=== PATIENT | male | born 1990 | race Caucasian/White ===

== ENCOUNTER 2019-03-30 00:21 | Emergency (ER) | payer OTHER, SELFPAY ==
--- NOTE | ~2019-03-30 | CT_ITS ---
EXAMINATION: CT abdomen pelvis w con EXAM DATE: 03/30/2019 01:57 INDICATION: Right lower quadrant pain. TECHNIQUE: Spiral CT of the abdomen and pelvis was performed following intravenous injection of 100 m L Omnipaque 350. Axial, coronal and sagittal images were reviewed. The dose-length product (DLP) fo r this examination was 298.72 mGy-cm. The exposure was tailored according to patient size (auto mA e xposure control), and iterative reconstruction (ASIR) was used as additional dose reduction technique . Comparison is made to prior examination from 05/21/2018. FINDINGS: The liver, spleen, adrenal glands and pancreas are unremarkable. The gallbladder is contra cted but otherwise unremarkable. Portal and splenic veins are patent. Kidneys enhance symmetrically . There is no hydronephrosis. The prostate has 12 mm hypodensity probably utricle cyst unchanged. Small umbilical fat-containing hernia. The bladder is unremarkable. There is no retroperitoneal or pelvic lymphadenopathy. The appendix is normal. The stomach and small bowel are unremarkable. There is moderate amount of c olonic stool. The descending colon has absence of haustral folds, somewhat unusual appearance which c ould possibly indicate chronic inflammatory bowel disease, however no history as per physician. Could potentially be phasic as well. There is mild sigmoid colonic diverticulosis. There is no adjacent i nflammatory change to suggest diverticulitis. No free intraperitoneal gas. The heart is normal in size. There are no pericardial or pleural effusions. The lung bases are unremarkable. There are no osteoblastic or osteolytic lesions identified. IMPRESSION: 1. No acute intra-abdominal findings. 2. Small prostate midline fluid density region could be utricle cyst cysts. 3. Rather featureless moderately distended descending colon, appearance can be seen with inflammator y bowel disease, or this could be phasic. No wall thickening or other findings to suggest acute proce ss. Reviewed, dictated and finalized at location B. [employer] IMPRESSION: 1. No acute intra-abdominal findings. 2. Small prostate midline fluid density region could be utricle cyst cysts. 3. Rather featureless moderately distended descending colon, appearance can be seen with inflammatory bowel disease, or this could be phasic. No wall thicken ing or other findings to suggest acute process.
[2019-03-30 00:21] VITALS: BP 145/82; PULSE 87; RESP 20; TEMP 36.6; O2SAT 96
[2019-03-30 00:46] LABS: Hematocrit 41.3 % (40.0-54.0); Hemoglobin 14.1 g/dL (14.0-18.0); Mean Corpuscular HGB Conc 34.1 g/dL (32.0-36.0); Mean Corpuscular Hemoglobin 29.7 pg (27.0-31.0); Mean Corpuscular Volume 86.9 fL (78.0-102.0); Mean Platelet Volume 9.7 fl (8.7-11.0); Platelet Count Result 218 K/mm3 (150-420); Red Blood Count 4.75 M/mm3 (4.70-6.10); Red Cell Distribution Width 12.7 % (11.6-14.4); White Blood Count 7.1 K/mm3 (4.8-10.8)
[2019-03-30 00:47] LABS: Appearance Urine Clear (Clear); Bilirubin Urine Negative (Negative); Color Urine Yellow (Yellow); Glucose Urine UA Negative (Negative); Ketones Urine Negative (Negative); Leukocyte Esterase Ur Negative LEU/UL (Negative); Nitrate Urine Negative (Negative); Protein Urine Trace (Negative); Urobilinogen Urine 0.2 mg/dL (0.2-1.0); pH Urine 6.5 (5.0-8.0)
[2019-03-30 01:02] LABS: Alanine Aminotransferase 44 U/L (16-63); Alkaline Phosphatase 104 U/L (46-116); Anion Gap 13.6 mmol/L (7-16); Aspartate Amino Transferase 26 U/L (15-37); Bilirubin,Total 0.3 mg/dL (0.00-1.00); Blood Urea Nitrogen 20 mg/dL (7-18); Calcium 8.5 mg/dL (8.5-10.1); Carbon Dioxide 28 mmol/L (21-32); Chloride 104 mmol/L (98-108); Estimated CRCL calculation 92 ml/min; Estimated Glomerular Filt Rate > 60; Glucose 101 mg/dL (70-99); Lipase 99 U/L (73-393); Osmolality Calculated 296 mOsm/kg (285-295); Potassium 3.6 mmol/L (3.5-5.1); Sodium 142 mmol/L (136-145); Total Protein 7.9 g/dL (6.4-8.2)
[2019-03-30 01:08] LABS: Add Urine Microscopic? YES; Bacteria Urine Trace /hpf; Blood Urine Trace (Negative); Squamous Epithelial Cell Urine None seen /hpf (Few); WBC Urine 0-3 /hpf (0-3)
[2019-03-30 01:09] LABS: Band Neutrophils Percent 0 % (0-6); Neutrophils Absolute Manual 4.04 K/mm3 (1.3-6.7); Neutrophils Percent Manual 57 % (46-73)
[2019-03-30 01:10] LABS: Eosinophils Absolute Manual 0.07 K/mm3 (0.02-0.5); Eosinophils Percent Manual 1 % (1-6); Lymphocytes Absolute Manual 2.05 K/mm3 (1.1-4.5); Lymphocytes Percent Manual 29 % (18-44); Monocytes Absolute Manual 0.92 K/mm3 (0.1-0.90); Monocytes Percent Manual 13 % (3-9); Platelet Estimate Adequate (Adequate)
[2019-03-30 01:11] LABS: Atypical Lymphocytes Present
[2019-03-30 01:12] LABS: Amylase 52 U/L (25-115); CRP 1.2 mg/dL (0.0-0.9)
--- NOTE | 2019-03-30 01:19 | ED.ABDPAIN ---
HPI - Abdominal Pain General Chief Complaint: Abdominal Pain Stated Complaint: abdominal pain Source: patient and RN notes reviewed Mode of arrival: ambulatory Limitations: no limitations History of Present Illness MD elicited complaint: abdominal pain Pertinent past history: none Onset (ago): day(s) (4) Pain Consistency: intermittent Location: periumbilical Severity: moderate Quality: cramping and sharp Radiation: RLQ Migration to: no migration Exacerbating factors: nothing Relieving factors: nothing Associated symptoms: denies other symptoms Related Data Home Medications Medication Instructions Recorded Confirmed No Home Medications 03/30/19 03/30/19 Allergies Allergy/AdvReac Type Severity Reaction Status Date / Time iodine Allergy Unknown Verified 03/09/17 17:37 Review of Systems Constitutional: Constitutional: Denies chills, Denies fever(s) and Denies weakness ENT: Reports system reviewed and no additional complaints, except as documented Cardiovascular: Cardiovascular: Reports no additional cardiovascular complaints Respiratory: Respiratory: Reports no additional respiratory complaints Gastrointestinal: Gastrointestinal: Denies constipation, Denies diarrhea, Denies nausea and Denies vomiting PMFSH Past Medical History Medical History (Updated 03/30/19 @ 04:22 by Magdiel Jones MD) No active medical problems Surgical History Surgical History (Updated 03/30/19 @ 01:26 by Magdiel Jones MD) H/O eye surgery Family History Family History (Updated 06/28/17 @ 14:42 by DOCTOR UNKNOWN) Father Acute myocardial infarction, Onset Age: 40 Social History Social History Smoking status: Smoker, status unknown Exam Const: General: healthy appearing, no acute distress and alert Nutritional Appearance: well nourished and thin Orientation/consciousness: patient oriented x3 HENMT: Head: normal to inspection Ears: external ears normal Mouth: Yes moist mucous membranes Eyes: Conjunctivae: conjunctivae normal Pupils: Equal, round and reactive pupils present EOM: EOMs intact bilaterally Neck: Neck: normal visual inspection and no lymphadenopathy Resp: Effort & Inspection: normal respiratory effort Auscultation: clear to auscultation bilaterally Cardio: Rate: regular rate Rhythm: regular rhythm GI: Inspection: normal to inspection GI Palp: Yes abdominal tenderness (RLQ), Yes Soft to palpation, Yes Guarding due to palpation present (GI) (RLQ) and Yes No hepatosplenomegaly present Auscultation: normal bowel sounds Back/Spine/Pelvis: Back: no CVA tenderness Cervical Spine: cervical ROM normal Thoracic/Lumbar Spine: thoraco-lumbar ROM normal Skin: General skin exam: normal color Rashes: no rashes Neuro: General: patient oriented x3, moves all extremities and no focal motor deficits Speech: normal speech Extrem: General: normal to inspection and no clubbing, cyanosis or edema Psych: Appearance: grossly normal and well kempt Mental Status: mental status grossly normal Affect: normal affect Attitude: cooperative Thought content: Yes Normal thought content present Course Vital Signs Vital signs: Vital Signs Temperature 36.6 C 03/30/19 00:21 Pulse Rate 87 03/30/19 00:21 Respiratory Rate 20 03/30/19 00:21 Blood Pressure 145/82 H 03/30/19 00:21 Pulse Oximetry 96 03/30/19 00:21 Temperature 36.7 C 03/30/19 04:18 Pulse Rate 83 03/30/19 04:18 Respiratory Rate 18 03/30/19 04:18 Blood Pressure 140/80 03/30/19 04:18 Pulse Oximetry 97 03/30/19 04:18 MDM - Abdominal Pain Lab Data Attestation: I reviewed the patient's lab results. Result diagrams: 03/30/19 00:39 03/30/19 00:39 Labs: Lab Results 03/30/19 03/30/19 03/30/19 Range/Units 00:36 00:39 00:39 WBC 7.1 (4.8-10.8) K/mm3 RBC 4.75 (4.70-6.10) M/mm3 Hgb 14.1 (14.0-18.0) g/dL Hct 41.3 (40.0-54.0) % MCV 86.9 (78.0-102.0) fL
--- NOTE | 2019-03-30 01:36 | PC.NURSE ---
CONTRAST CONSENT SIGNED AND FAXED TO XRAY DEPARTMENT. PT HAS BEEN SLEEPING UNTIL AWAKENED FOR IV INSERTION.
--- NOTE | 2019-03-30 02:07 | PC.NURSE ---
pt return from ct. compalint of itching all over. erp notified.
--- NOTE | 2019-03-30 03:24 | PC.NURSE ---
pt sleeping. no distress or evidence of pain.
[2019-03-30 03:46] VITALS: BP 141/82; PULSE 83; RESP 18; TEMP 36.9; O2SAT 97
[2019-03-30 04:18] VITALS: BP 140/80; PULSE 83; RESP 18; TEMP 36.7; O2SAT 97
== END 2019-03-30 04:23 | disposition home or self-care (01) ==
PROVIDERS: Emergency Provider Emergency Medicine
DX: R10.9 Unspecified abdominal pain (principal)
CPT/HCPCS: 36415; 74177; 80053; 81001; 82150; 83690; 85025; 86140; 96374; 99283; 99284; J1200; Q9965

== ENCOUNTER 2019-11-29 21:13 | Emergency (ER) | payer SELFPAY ==
--- NOTE | ~2019-11-29 | XR_ITS ---
EXAMINATION: XR chest 2V EXAM DATE: 11/29/2019 21:52 INDICATION: Cough and shortness of breath. TECHNIQUE: Frontal and lateral projections of the chest obtained and reviewed. Comparison is made to prior examination from 06/15/2017. FINDINGS: The lungs are clear. There are no pleural effusions. The cardiomediastinal silhouette is within normal limits. There is no pneumothorax suspected. The bones and soft tissues are unremarkab le. IMPRESSION: Unremarkable chest x-ray exam. Reviewed, dictated and finalized at location G.
[2019-11-29 21:36] VITALS: BP 141/77; PULSE 80; RESP 20; TEMP 37.1; O2SAT 99
--- NOTE | 2019-11-29 21:38 | ED.GENADULT ---
HPI - General Adult General Chief complaint: Upper Respiratory Infection Stated complaint: cough,throwing up Source: patient and family Mode of arrival: ambulatory Limitations: no limitations History of Present Illness HPI narrative: Tommy is a previously healthy man with the exception of COVID diagnosis in September, that presented to the emergency department with 4 days of cough, SOB, nausea and vomiting. It started with a constant dry cough that is so bad he feels like he is going to throw up then he does. He has had several episodes of NBNB vomiting and watery diarrhea. No chest pain or syncope. Related Data Home Medications Medication Instructions Recorded Confirmed No Home Medications 03/30/19 11/29/19 Allergies Allergy/AdvReac Type Severity Reaction Status Date / Time iodine Allergy Unknown Unknown Verified 11/29/19 21:43 Review of Systems Constitutional: Constitutional: Reports fatigue Comments: subjective fevers Eyes: Eyes: Reports no additional eye complaints ENT: Reports system reviewed and no additional complaints, except as documented Cardiovascular: Cardiovascular: Denies chest pain, Denies rapid heart rate and Denies radiating jaw, neck or arm pain Respiratory: Respiratory: Reports no additional respiratory complaints Gastrointestinal: Gastrointestinal: Reports as per HPI Genitourinary: Genitourinary: Reports no additional male genitourinary complaints Musculoskeletal: Musculoskeletal: Reports no additional musculoskeletal complaints Integumentary/Breasts: Skin/Breast: Reports system reviewed and no additional complaints, except as docu Neurologic: Reports system reviewed and no additional complaints, except as documented Psychiatric: Psychiatric: Reports no additional psychiatric complaints Endocrine: Endocrine: Reports no additional endocrine complaints Hematologic/Lymphatic: Hematologic/Lymphatic: Reports no additional hematologic/lymphatic complaints Allergic/Immunologic: Allergic/Immunologic: Reports no additional allergic/immunologic complaints [facility] Past Medical History Medical History No active medical problems Surgical History Surgical History H/O eye surgery Family History Family History Father Acute myocardial infarction, Onset Age: 40 Social History Social History Smoking status: Smoker, status unknown Gender identity (if verbalized by the patient): Male Exam Const: General: no acute distress Orientation/consciousness: patient oriented x3 HENMT: Head: normal to inspection Other: atraumatic, slightly dry mucous membranes. Eyes: Pupils: Equal, round and reactive pupils present Neck: Neck: normal visual inspection Chest: Chest palpation & inspection: normal inspection of the chest Resp: Effort & Inspection: normal respiratory effort Auscultation: clear to auscultation bilaterally Other: Hacking cough present on exam Cardio: Rate: regular rate Rhythm: regular rhythm Heart sounds: no murmurs GI: Inspection: non-distended GI Palp: Yes Soft to palpation, No Tenderness to palpation present (GI) and No Guarding due to palpation present (GI) Skin: General skin exam: normal color Rashes: no rashes Neuro: General: patient oriented x3 and moves all extremities Extrem: General: normal to inspection Psych: Mental Status: mental status grossly normal Course Course Emergency Course: Tommy was evaluated. CXR, flu swabs, 1L NS and labs were ordered. Labs were largely unremarkable. EXAMINATION: XR chest 2V EXAM DATE: 11/29/2019 21:52 INDICATION: Cough and shortness of breath. TECHNIQUE: Frontal and lateral projections of the chest obtained and reviewed. Comparison is made to prior examination from 06/15/2017. FINDINGS: The lungs
[2019-11-29] MEDS: SODIUM CHLORIDE 0.9% IV 1,000 ML 999 ML IV CONT (21:50)
[2019-11-29 21:59] LABS: Basophils Absolute Auto 0.05 K/mm3 (0.00-0.10); Basophils Percent Auto 0.5 % (0.0-1.0); Eosinophils Absolute Auto 0.46 K/mm3 (0.02-0.50); Eosinophils Percent Auto 4.7 % (1.0-6.0); Hemoglobin 15.3 g/dL (14.0-18.0); Immature Granulocyte Absolute 0.02 K/mm3 (0.00-0.00); Immature Granulocyte Percent A 0.2 % (0.0-0.0); Lymphocytes Percent Auto 46.2 % (18.0-42.0); Mean Corpuscular HGB Conc 34.8 g/dL (32.0-36.0); Mean Corpuscular Hemoglobin 30.5 pg (27.0-31.0); Mean Corpuscular Volume 87.6 fL (78.0-102.0); Mean Platelet Volume 9.7 fl (8.7-11.0); Monocytes Absolute Auto 0.85 K/mm3 (0.10-0.90); Monocytes Percent Auto 8.7 % (2.0-11.0); Neutrophils Absolute Auto 3.9 K/mm3 (1.7-7.2); Neutrophils Percent Auto 39.7 % (50.0-70.0); Platelet Count Result 330 K/mm3 (150-420); Red Blood Count 5.02 M/mm3 (4.70-6.10); Red Cell Distribution Width 12.3 % (11.6-14.4); White Blood Count 9.7 K/mm3 (4.8-10.8)
[2019-11-29 22:14] LABS: Alanine Aminotransferase 37 U/L (16-63); Albumin Level 3.9 g/dL (3.4-5.0); Alkaline Phosphatase 135 U/L (46-116); Anion Gap 9 mmol/L (8-16); Aspartate Amino Transferase 23 U/L (15-37); Bilirubin,Total 0.3 mg/dL (0.00-1.00); Blood Urea Nitrogen 14 mg/dL (7-18); Calcium 8.8 mg/dL (8.5-10.1); Carbon Dioxide 29 mmol/L (21-32); Chloride 103 mmol/L (98-108); Estimated CRCL calculation 80 ml/min; Estimated Glomerular Filt Rate > 60; Glucose 118 mg/dL (70-99); Osmolality Calculated 293 mOsm/kg (285-295); Potassium 3.5 mmol/L (3.5-5.1); Sodium 141 mmol/L (136-145); Total Protein 7.8 g/dL (6.4-8.2)
[2019-11-29 22:20] LABS: Influenza Control Valid (Valid)
[2019-11-29 22:54] VITALS: BP 136/80; PULSE 86; RESP 20; O2SAT 99
== END 2019-11-29 22:56 | disposition home or self-care (01) ==
PROVIDERS: Emergency Provider Family Medicine
DX: B34.9 Viral infection, unspecified (principal)
CPT/HCPCS: 36415; 71046; 80053; 85025; 87804; 96360; 99282; 99283; J7030

== ENCOUNTER 2020-03-03 02:00 | Emergency (ER) | payer OTHER, SELFPAY ==
[2020-03-03 02:14] VITALS: BP 131/87; PULSE 63; RESP 18; TEMP 36.3; O2SAT 97
[2020-03-03 02:57] LABS: SARS-CoV-2 Ag Negative (Negative)
[2020-03-03 03:14] VITALS: BP 130/78; PULSE 85; RESP 18; O2SAT 97
--- NOTE | 2020-03-03 03:19 | ED.URI ---
HPI - URI/Sore Throat General Chief Complaint: Upper Respiratory Infection Stated Complaint: Sore Throat Source: patient Mode of arrival: ambulatory Limitations: no limitations History of Present Illness HPI Narrative: this is a 29-year-old male with some sore throat with some enlarged and tender and painful left submandibular gland with some some pain with swallowing with no shortness of breath no fever chills no nausea vomiting. MD elicited complaint: sore throat Onset (ago): day(s) Consistency: constant Severity: moderate Able to tolerate fluids by mouth: Yes Exacerbating factors: swallowing Related Data Allergies Allergy/AdvReac Type Severity Reaction Status Date / Time iodine Allergy Unknown Unknown Verified 11/29/19 21:43 Review of Systems Review of Systems: All systems reviewed & are unremarkable except as noted in HPI and below PMFSH Past Medical History Medical History No active medical problems Patient denies medical problems Surgical History Surgical History H/O eye surgery Family History Family History Father Acute myocardial infarction, Onset Age: 40 Social History Social History Smoking status: Smoker, status unknown Gender identity (if verbalized by the patient): Male Exam Const: General: no acute distress and alert Orientation/consciousness: patient oriented x3 HENMT: Head: normal to inspection Other: left tonsillar enlargement and erythema Eyes: Conjunctivae: conjunctivae normal Pupils: Equal, round and reactive pupils present EOM: EOMs intact bilaterally Neck: Neck: normal visual inspection Other: tender enlarged left submandibular gland Chest: Chest palpation & inspection: normal inspection of the chest Resp: Effort & Inspection: normal respiratory effort Cardio: Rate: regular rate Rhythm: regular rhythm GI: GI Palp: Yes Soft to palpation Neuro: General: patient oriented x3 Extrem: General: normal to inspection Course Course Emergency Course: reassessment of patient after receiving a g of ceftriaxone resting comfortably advised to chicken picker medication at his pharmacy and follow-up with his primary care physicia Vital Signs Vital signs: Vital Signs Temperature 36.3 C L 03/03/20 02:14 Pulse Rate 63 03/03/20 02:14 Respiratory Rate 18 03/03/20 02:14 Blood Pressure 131/87 03/03/20 02:14 Pulse Oximetry 97 03/03/20 02:14 Temperature 36.3 C L 03/03/20 02:14 Pulse Rate 85 03/03/20 03:14 Respiratory Rate 18 03/03/20 03:14 Blood Pressure 130/78 03/03/20 03:14 Pulse Oximetry 97 03/03/20 03:14 MDM - URI/Sore Throat Lab Data Labs: Lab Results 03/03/20 03/03/20 Range/Units 02:19 02:22 SARS-CoV-2 Ag (Rapid) Negative (Negative) Grp A Beta Strep Ag Negative Critical Care Time Critical Care Time Critical Care Time: No Discharge Plan Discharge Clinical Impression: Pharyngitis Patient Disposition: Home, Self-Care Condition: Stable Instructions: Antibiotic Form, Pharyngitis (ED) Additional Instructions: take medicine as prescribed, follow-up with primary care physician if symptoms persist or worsen. Prescriptions: New amoxicillin-pot clavulanate [Augmentin] 875-125 mg tablet 1 tablet PO Q12H Qty: 20 RF: 0 prednisolone 15 mg/5 mL solution 30 mg PO QAM 5 Days Qty: 50 RF: 0 Follow-up/Referrals: UNKNOWN,DOCTOR [Primary Care Provider] - Time of Disposition: 03:24
[2020-03-03] MEDS: cefTRIAXone 1 GM VIAL IM (03:25)
[2020-03-03] MEDS: LIDOCAINE HCL 1% LOCAL INJ 20 ML VIAL (03:25)
== END 2020-03-03 03:30 | disposition home or self-care (01) ==
PROVIDERS: Emergency Provider Emergency Medicine
DX: J02.9 Acute pharyngitis, unspecified (principal)
CPT/HCPCS: 87081; 87426; 87880; 96372; 99283; C9803; J0696

== ENCOUNTER 2020-05-04 15:12 | Emergency (ER) | payer OTHER, SELFPAY ==
--- NOTE | ~2020-05-04 | XR_ITS ---
XR chest 2V DATE: 05/04/2020 16:28 INDICATION: Fever and cough after dental procedure TECHNIQUE: PA and lateral views COMPARISON: 11/29/2019 2 view chest FINDINGS: Normal heart size. No hilar or mediastinal enlargement. No pulmonary infiltrate or consolid ation, pleural effusion or pulmonary vascular congestion or pneumothorax. IMPRESSION: No active cardiopulmonary disease Reviewed, dictated and finalized at location A.
[2020-05-04 15:20] VITALS: BP 158/96; PULSE 115; RESP 20; TEMP 38.1; O2SAT 97
--- NOTE | 2020-05-04 15:26 | ED.FEVER ---
HPI - Fever General Chief Complaint: Dental/Oral Stated Complaint: multiple issues Time Seen by Provider: 05/04/20 15:26 Source: patient Mode of arrival: ambulatory Limitations: no limitations History of Present Illness HPI Narrative: 29-year-old man comes in today complaining fatigue, muscle aches, fever, cough, sore throat and runny nose for last 24 hours. Patient states he was feeling poorly prior to yesterday because he had some teeth removed 4 days ago. He has been taking Tylenol and ibuprofen but no antibiotics since his tooth extraction. He states he has diarrhea but denies shortness of breath, productive cough, chest pain, vomiting, abdominal pain, dysuria and rash. He denies sick exposures. He has not had the influenza vaccine this season. MD elicited complaint: fever and malaise Onset (ago): day(s) (1) Context: recent procedure Exacerbating factors: nothing Relieving factors: nothing Associated symptoms: myalgias, rhinorrhea, nasal congestion, sore throat, cough and diarrhea Treatments prior to arrival fever: acetaminophen and ibuprofen (> 6 hours [employer]) Related Data Home Medications Medication Instructions Recorded Confirmed No Home Medications 05/04/20 05/04/20 Allergies Allergy/AdvReac Type Severity Reaction Status Date / Time iodine Allergy Unknown Unknown Verified 11/29/19 21:43 Review of Systems Constitutional: Constitutional: Reports chills, Reports fatigue and Reports fever(s) Eyes: Eyes: Denies change in vision and Denies photophobia ENT: Reports as per HPI, Denies dysphagia, Reports nasal congestion and Reports sore throat Cardiovascular: Cardiovascular: Denies chest pain and Denies radiating jaw, neck or arm pain Respiratory: Respiratory: Reports cough, Denies dyspnea and Denies wheezing Gastrointestinal: Gastrointestinal: Denies abdominal pain, Reports diarrhea, Denies nausea and Denies vomiting Genitourinary: Genitourinary: Denies hematuria and Denies dysuria Musculoskeletal: Musculoskeletal: Denies arthralgias and Denies joint swelling Integumentary/Breasts: Skin/Breast: Denies pruritus, Denies erythema and Denies rash Neurologic: Denies vertigo, Denies dizziness and Denies syncope Hematologic/Lymphatic: Hematologic/Lymphatic: Denies easy bleeding and Denies easy bruising Allergic/Immunologic: Allergic/Immunologic: Denies lip swelling and Denies throat swelling PMFSH Past Medical History Medical History No active medical problems Patient denies medical problems Surgical History Surgical History H/O eye surgery Family History Family History Father Acute myocardial infarction, Onset Age: 40 Social History Social History (Updated 05/04/20 @ 15:41 by Du Haley MD) Smoking status: Current every day smoker Alcohol intake: never Substance use: never Gender identity (if verbalized by the patient): Male Exam Const: General: healthy appearing and alert Orientation/consciousness: patient oriented x3 Limitations: no limitations Other: Moderate acute distress. HENMT: Head: normal to inspection Ears: external ears normal, TM's normal bilaterally and EAC's normal Face and sinus: normal facial exam Mouth: Yes moist mucous membranes Other: Pharyngeal erythema without exudate, edema or per petechia Eyes: Conjunctivae: conjunctivae normal Pupils: Equal, round and reactive pupils present EOM: EOMs intact bilaterally Resp: Effort & Inspection: normal respiratory effort and not labored Auscultation: clear to auscultation bilaterally, no rales, no rhonchi and no wheezes Cardio: Rate: regular rate Rhythm: regular rhythm Heart sounds: no murmurs Skin: General skin exam: normal color, no jaundice and no pallor Rashes: no rashes Neuro: General: patient oriented x3, moves all extremities,
[2020-05-04] MEDS: KETOROLAC (*BKC) 60 MG/2 ML VIAL IM (15:41)
[2020-05-04 16:06] LABS: Influenza Control Valid (Valid); SARS-CoV-2 Ag Negative (Negative)
[2020-05-04 16:51] VITALS: TEMP 37.4
[2020-05-04 17:38] LABS: SARS-CoV-2 RNA PCR Negative
== END 2020-05-04 16:53 | disposition home or self-care (01) ==
PROVIDERS: Emergency Provider Emergency Medicine
DX: K08.89 Other specified disorders of teeth and supporting structures (principal); B34.9 Viral infection, unspecified; R50.9 Fever, unspecified; Z20.822 Contact with and (suspected) exposure to COVID-19
CPT/HCPCS: 71046; 87081; 87426; 87502; 87804; 87880; 96372; 99283; C9803; J1885; U0003; U0005

== ENCOUNTER 2021-01-08 22:03 | Emergency (ER) | payer OTHER, SELFPAY ==
--- NOTE | ~2021-01-08 | XR_ITS ---
XR chest 2V 01/08/2021 22:51 Indication: Left-sided chest pain Procedure: 2 view chest Comparison: Comparison to multiple prior studies sequentially, with oldest reviewed study dated 07/2013. Findings: There is right middle lobe atelectasis/scarring. No pleural effusion, edema or pneumothorax . Heart size is normal. Impression: 1: Linear right middle lobe atelectasis/scarring. Reviewed, dictated and finalized at location A. [employer] Impression: 1: Linear right middle lobe atelectasis/scarring.
--- NOTE | 2021-01-08 22:07 | ECG_ITS ---
Measurements Intervals [place] Rate: 62 P: 34 PA: 181 QRS: -7 QRSD: 92 T: 6 QT: 356 QTc: 362 Interpretive Statements SINUS RHYTHM DELAYED PRECORDIAL R/S TRANSITION VOLTAGE CRITERIA FOR LVH BASELINE ARTIFACT- I, II Electronically Signed On 01-10-2021 8:02:20 PATIENT CARE by Primitivo Rice D.O.
--- NOTE | 2021-01-08 22:16 | ED.CHESTPAIN ---
HPI - Chest Pain General Chief Complaint: Chest Pain Stated Complaint: chest pains Time Seen by Provider: 01/08/21 22:07 Source: patient and family Mode of arrival: ambulatory Limitations: no limitations History of Present Illness HPI narrative: 30-year-old man whose [place] comes in today complaining of left-sided chest pain that feels like someone is sitting on his chest. It started about 4 or 5 hours ago. States he has had similar symptoms a few years ago when they discovered he had a ?hole in his heart?. Patient states that he feels a little bit short of breath but has had no nausea, vomiting, dizziness, syncope, near syncope, diaphoresis, palpitations or rapid heartbeat. He has a history of a small atrial septal defect. He underwent stress test and echo in 2018. MD complaint: chest pain Onset (ago): hour(s) (4-5) Timing of current episode: constant Prior episodes: Yes Onset: during rest Pain location: left chest Pain radiation: none Severity: moderate Pain scale (0-10): 5 Quality: heaviness Relieving factors: nothing Exacerbating factors: nothing Associated symptoms: dyspnea Treatment prior to arrival: none and other (Recently taking ibuprofen and antibiotics after dental extraction) Risk Factors Coronary artery disease risk factors: smoking history and family history of CAD before age 50 Thoracic aortic dissection risk factors: none Related Data Home Medications Medication Instructions Recorded Confirmed No Home Medications 05/04/20 01/08/21 Allergies Allergy/AdvReac Type Severity Reaction Status Date / Time iodine Allergy Unknown Unknown Verified 11/29/19 21:43 Review of Systems Review of Systems: All systems reviewed & are unremarkable except as noted in HPI and below Constitutional: Constitutional: Denies chills and Denies fever(s) Eyes: Eyes: Denies change in vision and Denies photophobia ENT: Denies nasal congestion and Denies sore throat Cardiovascular: Cardiovascular: Reports as per HPI, Reports chest pain, Denies rapid heart rate, Denies radiating jaw, neck or arm pain and Denies slow heart rate Respiratory: Respiratory: Denies cough, Reports dyspnea and Denies wheezing Gastrointestinal: Gastrointestinal: Denies abdominal pain, Denies diarrhea, Denies nausea and Denies vomiting Genitourinary: Genitourinary: Denies hematuria, Denies dysuria and Denies urinary frequency Musculoskeletal: Musculoskeletal: Denies back pain, Denies arthralgias and Denies joint swelling Integumentary/Breasts: Skin/Breast: Denies pruritus, Denies erythema and Denies rash Neurologic: Denies vertigo, Denies dizziness, Denies syncope and Reports headache(s) Hematologic/Lymphatic: Hematologic/Lymphatic: Denies easy bleeding and Denies easy bruising Allergic/Immunologic: Allergic/Immunologic: Denies lip swelling and Denies throat swelling PMFSH Past Medical History Medical History (Updated 01/08/21 @ 22:38 by Du Haley MD) ASD (atrial septal defect) Migraines No active medical problems Patient denies medical problems Surgical History Surgical History H/O eye surgery Family History Family History Father Acute myocardial infarction, Onset Age: 40 Social History Social History (Updated 01/08/21 @ 22:27 by Du Haley MD) Smoking status: Former smoker Alcohol intake: never Substance use: never Living arrangements: with family Gender identity (if verbalized by the patient): Male Exam Const: General: healthy appearing, no acute distress and alert Orientation/consciousness: patient oriented x3 Limitations: no limitations HENMT: Head: normal to inspection Mouth: Yes moist mucous membranes Throat: posterior oropharynx normal Eyes: Conjunctivae: conjunctivae normal Pupils: Equal, round and reactive pupils present EOM: EOMs intact bilaterally Resp: Effort & Ins
[2021-01-08 22:19] VITALS: BP 136/91; PULSE 85; RESP 16; TEMP 37.1; O2SAT 100
[2021-01-08 22:29] VITALS: PULSE 85
[2021-01-08] MEDS: ASPIRIN 81 MG CHEWABLE TABLET 324 MG PO (22:43)
[2021-01-08 22:57] LABS: Basophils Absolute Auto 0.07 K/mm3 (0.00-0.10); Basophils Percent Auto 0.7 % (0.0-1.0); Eosinophils Absolute Auto 0.51 K/mm3 (0.02-0.50); Eosinophils Percent Auto 5.3 % (1.0-6.0); Hematocrit 44.5 % (40.0-54.0); Hemoglobin 15.7 g/dL (14.0-18.0); Immature Granulocyte Absolute 0.04 K/mm3 (0.00-0.00); Immature Granulocyte Percent A 0.4 % (0.0-0.0); Lymphocytes Absolute Auto 4.45 K/mm3 (1.10-4.50); Mean Corpuscular HGB Conc 35.3 g/dL (32.0-36.0); Mean Corpuscular Hemoglobin 31.3 pg (27.0-31.0); Mean Corpuscular Volume 88.8 fL (78.0-102.0); Mean Platelet Volume 9.6 fl (8.7-11.0); Monocytes Absolute Auto 0.78 K/mm3 (0.10-0.90); Monocytes Percent Auto 8.1 % (2.0-11.0); Neutrophils Absolute Auto 3.8 K/mm3 (1.7-7.2); Neutrophils Percent Auto 39.5 % (50.0-70.0); Platelet Count Result 304 K/mm3 (150-420); Red Blood Count 5.01 M/mm3 (4.70-6.10); Red Cell Distribution Width 12.3 % (11.6-14.4); White Blood Count 9.7 K/mm3 (4.8-10.8)
[2021-01-08 23:16] LABS: Alanine Aminotransferase 50 U/L (16-63); Albumin Level 3.8 g/dL (3.4-5.0); Alkaline Phosphatase 135 U/L (46-116); Anion Gap 9 mmol/L (8-16); Aspartate Amino Transferase 12 U/L (15-37); Bilirubin,Total 0.3 mg/dL (0.00-1.00); Blood Urea Nitrogen 12 mg/dL (7-18); Calcium 8.9 mg/dL (8.5-10.1); Carbon Dioxide 28 mmol/L (21-32); Chloride 103 mmol/L (98-108); Estimated CRCL calculation 87 ml/min; Estimated Glomerular Filt Rate > 60; Glucose 100 mg/dL (70-99); Osmolality Calculated 289 mOsm/kg (285-295); Sodium 140 mmol/L (136-145); Total Protein 7.2 g/dL (6.4-8.2)
[2021-01-08 23:43] LABS: Appearance Urine Clear (Clear); Bilirubin Urine Negative (Negative); Color Urine Light Yellow (Yellow); Glucose Urine UA Negative (Negative); Ketones Urine Negative (Negative); Leukocyte Esterase Ur Negative LEU/UL (Negative); Nitrate Urine Negative (Negative); Protein Urine Negative (Negative); Specific Grav Ur 1.015 (1.010-1.020); Urobilinogen Urine 0.2 mg/dL (0.2-1.0)
[2021-01-08 23:47] LABS: Add Urine Microscopic? YES; Blood Urine Trace-Intact (Negative); RBC Urine 0-2 /hpf (0-2); Squamous Epithelial Cell Urine None seen /hpf (Few); WBC Urine None seen /hpf (0-3)
[2021-01-09 00:17] VITALS: BP 140/88; PULSE 64; RESP 16; TEMP 36.6; O2SAT 98
--- NOTE | 2021-01-09 00:23 | PC.NURSE ---
Patient requesting to leave at this time. Patient is alert and oriented x4, vitals stable. awaiting lab results
== END 2021-01-09 00:29 | disposition home or self-care (01) ==
PROVIDERS: Emergency Provider Emergency Medicine
DX: R07.9 Chest pain, unspecified (principal)
CPT/HCPCS: 36415; 71046; 80053; 81001; 84484; 85025; 85380; 93005; 99283; 99284; A9270

== ENCOUNTER 2021-02-21 00:35 | Emergency (ER) | payer OTHER, SELFPAY ==
[2021-02-21 00:35] VITALS: BP 136/90; PULSE 105; RESP 18; TEMP 36.8; O2SAT 97
[2021-02-21] MEDS: ACETAMINOPHEN 500 MG TABLET 1000 MG PO (01:11)
[2021-02-21 01:15] LABS: SARS-CoV-2 Ag Negative (Negative)
[2021-02-21] MEDS: SODIUM CHLORIDE 0.9% IV 500 ML 999 ML IV CONT (01:17)
--- NOTE | 2021-02-21 01:45 | ED.URI ---
HPI - URI/Sore Throat General Chief Complaint: Upper Respiratory Infection Stated Complaint: Fever possible covid Source: patient Mode of arrival: ambulatory Limitations: no limitations History of Present Illness HPI Narrative: This is a 30-year-old male that presents with some cough congestion runny nose body aches has had a fever at home current temperature in the emergency department is 98.2 currently no shortness of breath no nausea vomiting no chest pain no diarrhea constipation. MD elicited complaint: fever, cough and nasal congestion Onset (ago): week(s) Related Data Home Medications Medication Instructions Recorded Confirmed No Home Medications 05/04/20 02/21/21 Allergies Allergy/AdvReac Type Severity Reaction Status Date / Time iodine Allergy Unknown Unknown Verified 02/21/21 00:51 Review of Systems Review of Systems: All systems reviewed & are unremarkable except as noted in HPI and below PMFSH Past Medical History Medical History ASD (atrial septal defect) Migraines No active medical problems Patient denies medical problems Surgical History Surgical History H/O eye surgery Family History Family History Father Acute myocardial infarction, Onset Age: 40 Social History Social History Smoking status: Former smoker Alcohol intake: never Substance use: never Gender identity (if verbalized by the patient): Male Exam Const: General: no acute distress and alert Orientation/consciousness: patient oriented x3 HENMT: Head: normal to inspection Eyes: Conjunctivae: conjunctivae normal Pupils: Equal, round and reactive pupils present Neck: Neck: normal visual inspection and no lymphadenopathy Chest: Chest palpation & inspection: normal inspection of the chest Resp: Effort & Inspection: normal respiratory effort Auscultation: clear to auscultation bilaterally Cardio: Rate: regular rate Rhythm: regular rhythm GI: GI Palp: Yes Soft to palpation Percussion: Yes normal to percussion Skin: General skin exam: normal color Rashes: no rashes Neuro: General: patient oriented x3, moves all extremities, no meningeal signs and no focal motor deficits Extrem: General: normal to inspection Psych: Mental Status: mental status grossly normal Affect: normal affect Course Course Emergency Course: Patient received IV fluids and a g of Tylenol advised patient to go home rest drink plenty of fluids and can take Tylenol or Motrin [id number]. Vital Signs Vital signs: Vital Signs Temperature 36.8 C 02/21/21 00:35 Pulse Rate 105 H 02/21/21 00:35 Respiratory Rate 18 02/21/21 00:35 Blood Pressure 136/90 02/21/21 00:35 Pulse Oximetry 97 02/21/21 00:35 Temperature 36.8 C 02/21/21 00:35 Pulse Rate 105 H 02/21/21 00:35 Respiratory Rate 18 02/21/21 00:35 Blood Pressure 136/90 02/21/21 00:35 Pulse Oximetry 97 02/21/21 00:35 MDM - URI/Sore Throat Lab Data Labs: Lab Results 02/21/21 02/21/21 Range/Units 00:53 01:33 Influenza Type A Ag Pending Influenza Type B Ag Pending SARS-CoV-2 Ag (Rapid) Negative (Negative) Critical Care Time Critical Care Time Critical Care Time: No Discharge Plan Discharge Clinical Impression: Viral infection Patient Disposition: Home, Self-Care Condition: Stable Instructions: Antibiotic Form, Viral Syndrome (ED) Additional Instructions: Rest, drink plenty of fluids [id number] cough preparations for cold and cough Tylenol or Motrin for fever or body aches. Symptoms persist or worsens follow up primary care physician. Prescriptions: No Action No Home Medications RF: 0 Follow-up/Referrals: Dunia Mccoy NP [Primary Care Provider] -
[2021-02-21 01:50] LABS: Influenza Control Valid (Valid)
[2021-02-21 01:55] VITALS: TEMP 36.8
[2021-02-21 02:00] VITALS: BP 121/86; PULSE 83; RESP 18; TEMP 36.8; O2SAT 96
== END 2021-02-21 02:09 | disposition home or self-care (01) ==
PROVIDERS: Emergency Provider Emergency Medicine; PCP Nurse Practitioner Family
DX: B34.9 Viral infection, unspecified (principal); Z20.822 Contact with and (suspected) exposure to COVID-19
CPT/HCPCS: 73140; 87426; 87804; 96360; 99283; C9803; J7040

== ENCOUNTER 2021-03-08 20:20 | Emergency (ER) | payer OTHER, SELFPAY ==
--- NOTE | ~2021-03-08 | CT_ITS ---
EXAMINATION: CT diagnostic chest wo con DATE: 03/08/2021 22:58 INDICATION: Fever, leukocytosis TECHNIQUE: Computed tomography (CT) of the chest was performed without intravenous contrast. Automate d exposure control and iterative reconstruction technique were employed. Exam dose: 183.12 mGy-cm to nayana exam DLP. COMPARISON: 01/04/2021 2 view chest FINDINGS: There is minimal dependent atelectasis in both lower lobes. The lungs are otherwise clear. No hilar or mediastinal mass lesion or lymphadenopathy. Normal heart size. No pericardial or pleural effusion. Included skeletal structures are unremarkable. IMPRESSION: Minimal dependent atelectasis in the lower lobes Reviewed, dictated and finalized at [facility]. Reviewed, dictated and finalized at [facility]. 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
--- NOTE | 2021-03-08 20:47 | ED.BACK ---
HPI - Back Pain/Injury General Chief Complaint: Back Pain/Injury Stated Complaint: discharged ER [facility] 03/07, poss tear in kidney Source: patient and RN notes reviewed Mode of arrival: ambulatory Limitations: no limitations History of Present Illness HPI Narrative: patient states he has had back pain for least 4 days now. He went to another hospital last evening and had a workup done including blood work urine and CT scan without contrast. He was found to have some hematuria slightly elevated white count at 13 and off and on fevers. He was given Toradol which was of no help, the CT scan was negative for kidney stones but his urine did show hematuria. Patient states he has used the muscle relaxers that they gave him last night. They mentioned something about a tear in his kidney. He was also jeff ply[place] on a roof 4 days ago when the pain started that became severe. The pain remains in his upper left flank. MD elicited complaint: back injury Onset (ago): day(s) (4) Timing: constant Severity: moderate Similar Symptoms Previously: No Quality: sharp, stabbing and spasming Location: left lower back Exacerbating factors: movement Relieving factors: none Context: while lifting and turning/twisting Associated symptoms: fever and hematuria Treatments prior to arrival: other medications ( Muscle relaxers) Related Data Home Medications Medication Instructions Recorded Confirmed cyclobenzaprine 10 mg PO DAILY 03/08/21 03/08/21 Allergies Allergy/AdvReac Type Severity Reaction Status Date / Time iodine Allergy Unknown Unknown Verified 03/08/21 21:02 Review of Systems Review of Systems: All systems reviewed & are unremarkable except as noted in HPI and below Constitutional: Constitutional: Reports fever(s) Gastrointestinal: Gastrointestinal: Denies diarrhea, Denies nausea and Denies vomiting Genitourinary: Genitourinary: Reports hematuria [facility] Past Medical History Medical History (Updated 03/09/21 @ 00:00 by Toby Cid) ASD (atrial septal defect) Family history of early CAD Migraines Patient denies medical problems Surgical History Surgical History H/O eye surgery Family History Family History Father Acute myocardial infarction, Onset Age: 40 Social History Social History (Updated 03/08/21 @ 20:54 by Magdiel Jones MD) Smoking packs per day: 1 Smoking cigarettes per day: 20.0 Smoking status: Current every day smoker Tobacco type: cigarettes Alcohol intake: never Substance use: never Gender identity (if verbalized by the patient): Male Exam Const: General: healthy appearing, no acute distress and alert Nutritional Appearance: well nourished Orientation/consciousness: patient oriented x3 HENMT: Head: normal to inspection Ears: external ears normal Eyes: Conjunctivae: conjunctivae normal Pupils: Equal, round and reactive pupils present EOM: EOMs intact bilaterally Resp: Effort & Inspection: normal respiratory effort Auscultation: clear to auscultation bilaterally Cardio: Rate: regular rate Rhythm: regular rhythm : General: Yes CVA tenderness on the left (severe) Back/Spine/Pelvis: Cervical Spine: cervical ROM normal Thoracic/Lumbar Spine: thoraco-lumbar ROM normal Neuro: General: patient oriented x3, moves all extremities, no meningeal signs, no focal motor deficits and CN's II-XI intact bilaterally Speech: normal speech Gait exam (Neuro): Normal gait present Extrem: General: normal to inspection and no clubbing, cyanosis or edema Psych: Appearance: grossly normal and well kempt Mental Status: mental status grossly normal Affect: normal affect Attitude: cooperative Thought content: Yes Normal thought content present Course Vital Signs Vital signs: Vital Signs Temperature 37.0 C 03/08/21 21:03 Pulse Rate 74 03/08/21 21:03 Respiratory
[2021-03-08 21:03] VITALS: BP 112/100; PULSE 74; RESP 17; TEMP 37; O2SAT 98
[2021-03-08 21:19] LABS: Add Urine Microscopic? YES; Appearance Urine Clear (Clear); Bilirubin Urine Negative (Negative); Blood Urine 3+ (Negative); Color Urine Yellow (Yellow); Glucose Urine UA Negative (Negative); Ketones Urine Trace (Negative); Leukocyte Esterase Ur Negative LEU/UL (Negative); Nitrate Urine Negative (Negative); Protein Urine 1+ (Negative); Specific Grav Ur >= 1.030 (1.010-1.020); Urobilinogen Urine 0.2 mg/dL (0.2-1.0); pH Urine 5.5 (5.0-8.0)
[2021-03-08 21:26] LABS: Bacteria Urine 1+ /hpf
[2021-03-08 21:27] LABS: Mucus Urine Heavy /lpf
[2021-03-08] MEDS: HYDROmorphone HCL INJ (*CRX) 2 MG/ML VIAL 1 MG IV PUSH (22:44)
[2021-03-08 23:55] VITALS: BP 126/76; PULSE 72; RESP 18; O2SAT 97
== END 2021-03-08 23:56 | disposition home or self-care (01) ==
PROVIDERS: Emergency Provider Emergency Medicine; PCP Family Medicine
DX: R10.9 Unspecified abdominal pain (principal); N02.9 Recurrent and persistent hematuria with unspecified morphologic changes
CPT/HCPCS: 71250; 81001; 96374; 99283; 99284; J1170

== ENCOUNTER 2021-03-10 11:32 | Outpatient (CLI) | payer OTHER, SELFPAY ==
--- NOTE | ~2021-03-10 | US_ITS ---
EXAMINATION: US abdomen complete EXAM DATE: 03/10/2021 12:04 INDICATION: R10.12 - Left upper quadrant pain. TECHNIQUE: Multiple grayscale and Doppler images of the complete abdomen were obtained (by a technolo gist who performed the scan) and subsequently reviewed. There is no prior study for comparison. FINDINGS: The abdominal aorta is normal in caliber. Visualized portion IVC is patent. The pancreatic head a nd body are normal in appearance. The pancreatic tail is not visualized. The liver has normal echogenicity and contour. Focal geographic shaped region of hyperechogenicity m ost likely focal hepatic steatosis measuring about 2 cm. There is no evidence of intrahepatic biliar y duct dilation. Portal venous flow was seen in the hepatopedal, normal direction and has normal Dop pler waveform. Common bile duct measures 4 mm, which is normal. The gallbladder wall is normal in thickness, with ex pected amount of distention. No sonographic evidence of pericholecystic fluid. There is no cholelit hiases. Technologist performing exam reports patient did not demonstrate sonographic Beck's sign. Please note that this sign is less reliable in patients who have received pain medication. Right kidney: There is normal contour and echogenicity. It measures 11.9 x 5.7 x 5.5 centimeters. There are no focal renal lesions identified. There is no hydronephrosis. Left kidney: There is normal contour and echogenicity. It measures 11.5 x 6.0 x 5.1 centimeters. T here are no focal renal lesions identified. There is no hydronephrosis. The spleen measures 9 centimeters and is morphologically normal. IMPRESSION: 1. Focal hepatic steatosis. 2. No hydronephrosis or acute findings. Reviewed, dictated and finalized at location [facility]. 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
[2021-03-10 11:45] LABS: Basophils Absolute Auto 0.05 K/mm3 (0.00-0.10); Basophils Percent Auto 0.7 % (0.0-1.0); Eosinophils Absolute Auto 0.34 K/mm3 (0.02-0.50); Eosinophils Percent Auto 4.5 % (1.0-6.0); Hematocrit 47.4 % (40.0-54.0); Hemoglobin 16.2 g/dL (14.0-18.0); Immature Granulocyte Absolute 0.02 K/mm3 (0.00-0.00); Immature Granulocyte Percent A 0.3 % (0.0-0.0); Lymphocytes Absolute Auto 3.18 K/mm3 (1.10-4.50); Lymphocytes Percent Auto 42.3 % (18.0-42.0); Mean Corpuscular HGB Conc 34.2 g/dL (32.0-36.0); Mean Corpuscular Hemoglobin 30.5 pg (27.0-31.0); Mean Corpuscular Volume 89.3 fL (78.0-102.0); Mean Platelet Volume 9.5 fl (8.7-11.0); Monocytes Absolute Auto 0.56 K/mm3 (0.10-0.90); Monocytes Percent Auto 7.4 % (2.0-11.0); Neutrophils Absolute Auto 3.4 K/mm3 (1.7-7.2); Neutrophils Percent Auto 44.8 % (50.0-70.0); Platelet Count Result 349 K/mm3 (150-420); Red Blood Count 5.31 M/mm3 (4.70-6.10); Red Cell Distribution Width 11.9 % (11.6-14.4); White Blood Count 7.5 K/mm3 (4.8-10.8)
[2021-03-10 12:31] LABS: Alanine Aminotransferase 31 U/L (16-63); Albumin Level 3.9 g/dL (3.4-5.0); Alkaline Phosphatase 124 U/L (46-116); Anion Gap 6 mmol/L (8-16); Aspartate Amino Transferase 13 U/L (15-37); Bilirubin,Total 0.3 mg/dL (0.00-1.00); Blood Urea Nitrogen 15 mg/dL (7-18); Calcium 9.8 mg/dL (8.5-10.1); Carbon Dioxide 32 mmol/L (21-32); Chloride 101 mmol/L (98-108); Estimated Glomerular Filt Rate > 60; Glucose 91 mg/dL (70-99); Osmolality Calculated 288 mOsm/kg (285-295); Sodium 139 mmol/L (136-145)
[2021-03-10 13:27] LABS: Monoscreen Negative (Negative); Negative Monotest Control Negative (Negative); Positive Monotest Control Positive (Positive)
== END 2021-03-10 11:33 | disposition home or self-care (01) ==
LOC: CHSIMG 11:34
PROVIDERS: PCP Nurse Practitioner Family; Visit Provider Nurse Practitioner Family
DX: R10.12 Left upper quadrant pain (principal); R50.9 Fever, unspecified; Z00.00 Encounter for general adult medical examination without abnormal findings
CPT/HCPCS: 36415; 76700; 80053; 85025; 86308

== ENCOUNTER 2021-03-11 09:56 | Outpatient (CLI) | payer OTHER, SELFPAY ==
--- NOTE | ~2021-03-11 | MR_ITS ---
EXAMINATION: MR abdomen wo con DATE: 03/11/2021 10:42 INDICATION: Left upper quadrant abdominal pain. TECHNIQUE: Magnetic resonance imaging (MRI) of the abdomen was performed without intravenous contrast . Sequences included coronal T2-weighted FS FSE, coronal FS FIESTA, axial T2-weighted FSE, axial and coronal LAVA-flex, axial DWI, and radial T2-weighted FSE. COMPARISON: Abdomen ultrasound 03/10/2021, CT abdomen and pelvis 03/30/2019 FINDINGS: The liver, gallbladder, biliary tree, spleen, pancreas, adrenal glands, and kidneys are normal. There are no dilated loops of bowel. There are no pathologically enlarged lymph nodes. There is no free in traperitoneal fluid. IMPRESSION: 1. Normal abdomen. Reviewed, dictated and finalized at location [facility]. 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 Normal abdomen.
== END 2021-03-11 09:57 | disposition home or self-care (01) ==
LOC: CHSIMG 09:57
PROVIDERS: PCP Family Medicine; Visit Provider Nurse Practitioner Family
DX: R10.12 Left upper quadrant pain (principal); R31.9 Hematuria, unspecified; R10.9 Unspecified abdominal pain
CPT/HCPCS: 74181

== ENCOUNTER 2021-06-05 02:00 | Emergency (ER) | payer OTHER, SELFPAY ==
[2021-06-05 02:03] VITALS: BP 131/72; PULSE 101; RESP 18; TEMP 37.3; O2SAT 97
--- NOTE | 2021-06-05 02:22 | ECG_ITS ---
Measurements Intervals [place] Rate: 93 P: 51 UT: 148 QRS: -2 QRSD: 93 T: 29 QT: 320 QTc: 399 Interpretive Statements SINUS RHYTHM VOLTAGE CRITERIA FOR LVH ABNORMAL ECG COMPARED TO ECG 01/08/2021 22:24:10 NO SIGNIFICANT CHANGES Electronically Signed On 06-05-2021 16:39:41 CDT by Kleber Andrade M.D.
--- NOTE | 2021-06-05 02:27 | ED.FEVER ---
HPI - Fever General Chief Complaint: Fever Stated Complaint: Fever Time Seen by Provider: 06/05/21 02:02 Source: patient and RN notes reviewed Mode of arrival: ambulatory Limitations: no limitations History of Present Illness MD elicited complaint: fever Onset (ago): day(s) (1) Measured temperature: 99 C Context: other(s) with similar symptoms Exacerbating factors: nothing Relieving factors: ibuprofen Associated symptoms: sore throat, cough and nausea Treatments prior to arrival fever: ibuprofen Related Data Home Medications Medication Instructions Recorded Confirmed No Home Medications 06/05/21 06/05/21 Allergies Allergy/AdvReac Type Severity Reaction Status Date / Time iodine Allergy Unknown Unknown Verified 06/05/21 02:06 Review of Systems Review of Systems: All systems reviewed & are unremarkable except as noted in HPI and below PMFSH Past Medical History Medical History ASD (atrial septal defect) Family history of early CAD Migraines Patient denies medical problems Viral syndrome Surgical History Surgical History H/O eye surgery Family History Family History Father Acute myocardial infarction, Onset Age: 40 Social History Social History Smoking packs per day: 1 Smoking cigarettes per day: 20.0 Smoking status: Current every day smoker Tobacco type: cigarettes Alcohol intake: never Substance use: never Gender identity (if verbalized by the patient): Male Exam Const: General: no acute distress and alert Nutritional Appearance: well nourished Orientation/consciousness: patient oriented x3 Limitations: no limitations HENMT: Ears: external ears normal, TM's normal bilaterally and EAC's normal General nose exam: Normal external nose present and Normal nares present Face and sinus: normal facial exam and sinuses nontender Mouth: Yes moist mucous membranes (mild pharyngeal hyperemia.) Eyes: Conjunctivae: conjunctivae normal Pupils: Equal, round and reactive pupils present EOM: EOMs intact bilaterally Neck: Neck: normal visual inspection and no lymphadenopathy Chest: Chest palpation & inspection: normal inspection of the chest Resp: Effort & Inspection: normal respiratory effort Auscultation: clear to auscultation bilaterally Cardio: Rate: tachycardic Rhythm: regular rhythm Peripheral pulses: Peripheral pulses 2+ throughout GI: GI Palp: Yes Soft to palpation and No Tenderness to palpation present (GI) Auscultation: normal bowel sounds : General: Yes no CVA tenderness Male General Exam: Yes normal external exam Testes: Testes normal Back/Spine/Pelvis: Back: no CVA tenderness Skin: General skin exam: normal color Rashes: no rashes Neuro: General: patient oriented x3, moves all extremities, no meningeal signs, no focal motor deficits and CN's II-XI intact bilaterally Extrem: General: normal to inspection and no pedal edema Psych: Mental Status: mental status grossly normal Affect: normal affect Attitude: cooperative Thought content: Yes Normal thought content present Course Reevaluation(s) Reevaluation #1: VSS Date: 06/05/21 Time: 03:00 Vital Signs Vital signs: Vital Signs Temperature 37.3 C 06/05/21 02:03 Pulse Rate 101 H 06/05/21 02:03 Respiratory Rate 18 06/05/21 02:03 Blood Pressure 131/72 06/05/21 02:03 Pulse Oximetry 97 06/05/21 02:03 Temperature 37.3 C 06/05/21 02:03 Pulse Rate 101 H 06/05/21 02:03 Respiratory Rate 18 06/05/21 02:03 Blood Pressure 131/72 06/05/21 02:03 Pulse Oximetry 97 06/05/21 02:03 MDM - Fever Differential Diagnosis Differential diagnosis: Likely fever of unknown origin, viral infection and influenza Medical Records Attestation: I reviewed the patient's medical
[2021-06-05 02:35] LABS: Basophils Absolute Auto 0.05 K/mm3 (0.00-0.10); Basophils Percent Auto 0.6 % (0.0-1.0); Eosinophils Absolute Auto 0.05 K/mm3 (0.02-0.50); Eosinophils Percent Auto 0.6 % (1.0-6.0); Hematocrit 42.7 % (40.0-54.0); Hemoglobin 14.8 g/dL (14.0-18.0); Immature Granulocyte Absolute 0.03 K/mm3 (0.00-0.00); Immature Granulocyte Percent A 0.4 % (0.0-0.0); Lymphocytes Percent Auto 6.1 % (18.0-42.0); Mean Corpuscular HGB Conc 34.7 g/dL (32.0-36.0); Mean Corpuscular Hemoglobin 30.1 pg (27.0-31.0); Mean Platelet Volume 9.7 fl (8.7-11.0); Monocytes Absolute Auto 0.58 K/mm3 (0.10-0.90); Monocytes Percent Auto 7.1 % (2.0-11.0); Neutrophils Percent Auto 85.2 % (50.0-70.0); Platelet Count Result 256 K/mm3 (150-420); Red Blood Count 4.91 M/mm3 (4.70-6.10); Red Cell Distribution Width 12.6 % (11.6-14.4); White Blood Count 8.2 K/mm3 (4.8-10.8)
[2021-06-05] MEDS: KETOROLAC (*BKC) 60 MG/2 ML VIAL IM (02:40)
[2021-06-05] MEDS: MAG HYDROX/ALUMINUM HYD/SIMETH 30 ML, PHENobarb/HYOSCY/ATROPINE/SCOP 32.4 MG, LIDOCAINE... PO (02:40)
[2021-06-05] MEDS: ACETAMINOPHEN 325 MG TABLET 650 MG PO (02:41)
[2021-06-05] MEDS: guaiFENesin 12 HR 600 MG TABCR PO ×2 (02:46→02:51)
[2021-06-05] MEDS: ONDANSETRON HCL ODT 4 MG TABLET PO (02:48)
[2021-06-05 02:56] LABS: Alanine Aminotransferase 29 U/L (16-63); Albumin Level 3.9 g/dL (3.4-5.0); Alkaline Phosphatase 115 U/L (46-116); Anion Gap 10 mmol/L (8-16); Aspartate Amino Transferase 16 U/L (15-37); Bilirubin,Total 0.3 mg/dL (0.00-1.00); Blood Urea Nitrogen 10 mg/dL (7-18); Calcium 8.9 mg/dL (8.5-10.1); Carbon Dioxide 23 mmol/L (21-32); Chloride 102 mmol/L (98-108); Estimated CRCL calculation 71 ml/min; Estimated Glomerular Filt Rate > 60; Glucose 116 mg/dL (70-99); Osmolality Calculated 280 mOsm/kg (285-295); Potassium 3.4 mmol/L (3.5-5.1); Sodium 135 mmol/L (136-145); Total Protein 7.3 g/dL (6.4-8.2)
[2021-06-05 03:06] LABS: Add Urine Microscopic? YES; Appearance Urine Clear (Clear); Bilirubin Urine 1+ (Negative); Blood Urine 3+ (Negative); Color Urine Yellow (Yellow); Glucose Urine UA Negative (Negative); Ketones Urine Trace (Negative); Leukocyte Esterase Ur Negative (Negative); Nitrate Urine Negative (Negative); Protein Urine 1+ (Negative); Urobilinogen Urine 0.2 mg/dL (0.2-1.0)
[2021-06-05 03:10] LABS: Troponin I 7.9 ng/L (0.00-60.4)
[2021-06-05 03:13] LABS: Bacteria Urine Trace /hpf; Mucus Urine Few /lpf; RBC Urine 0-2 /hpf (0-2); Squamous Epithelial Cell Urine Rare /hpf (Few); WBC Urine 0-3 /hpf (0-3)
[2021-06-05 03:26] LABS: Influenza A QL RT-PCR Positive (Negative); Influenza B QL RT-PCR Negative (Negative); SARS-CoV-2 RNA PCR Negative (Negative)
[2021-06-05 03:50] VITALS: BP 117/78; PULSE 100; RESP 20; TEMP 37; O2SAT 96
== END 2021-06-05 03:51 | disposition home or self-care (01) ==
PROVIDERS: Emergency Provider Emergency Medicine; PCP Family Medicine
DX: J11.1 Influenza due to unidentified influenza virus with other respiratory manifestations (principal); B34.9 Viral infection, unspecified; Z20.822 Contact with and (suspected) exposure to COVID-19
CPT/HCPCS: 36415; 80053; 81001; 84484; 85025; 87081; 87502; 87880; 93005; 96372; 99283; A9270; C9803; J1885; U0003; U0005

== ENCOUNTER 2021-09-22 21:43 | Emergency (ER) | payer OTHER, SELFPAY ==
[2021-09-22 22:03] VITALS: BP 176/121; PULSE 75; RESP 18; TEMP 36.6; O2SAT 97
--- NOTE | 2021-09-22 22:20 | ED.DENTAL ---
HPI - Dental/Oral General Chief complaint: Dental/Oral Stated complaint: oral issues Time Seen by Provider: 09/22/21 21:47 Source: patient and RN notes reviewed Mode of arrival: ambulatory Limitations: no limitations History of Present Illness HPI Narrative: post extraction of multiple right upper teeth, very painful. pt is on Amoxil. Complaint: tooth pain Onset (ago): day(s) (3) Duration: constant Severity: moderate Severity scale (1-10): 6 Relieving factors: NSAIDs Exacerbating factors: chewing Context: history of dental caries and poor dental care Treatment prior to arrival: oral analgesic Related Data Allergies Allergy/AdvReac Type Severity Reaction Status Date / Time iodine Allergy Unknown Unknown Verified 09/22/21 22:06 Review of Systems Review of Systems: All systems reviewed & are unremarkable except as noted in HPI and below Constitutional: Constitutional: Reports no additional constitutional complaints Eyes: Eyes: Reports no additional eye complaints ENT: Comments: toothache Cardiovascular: Cardiovascular: Reports no additional cardiovascular complaints Respiratory: Respiratory: Reports no additional respiratory complaints Gastrointestinal: Gastrointestinal: Reports no additional gastrointestinal complaints Musculoskeletal: Musculoskeletal: Reports no additional musculoskeletal complaints Integumentary/Breasts: Skin/Breast: Reports system reviewed and no additional complaints, except as docu Neurologic: Reports system reviewed and no additional complaints, except as documented Psychiatric: Psychiatric: Reports no additional psychiatric complaints Endocrine: Endocrine: Reports no additional endocrine complaints Hematologic/Lymphatic: Hematologic/Lymphatic: Reports no additional hematologic/lymphatic complaints Allergic/Immunologic: Allergic/Immunologic: Reports no additional allergic/immunologic complaints PMFSH Past Medical History Medical History ASD (atrial septal defect) Elevated blood pressure reading in office without diagnosis of hypertension Family history of early CAD Migraines Patient denies medical problems Viral syndrome Surgical History Surgical History H/O eye surgery Family History Family History Father Acute myocardial infarction, Onset Age: 40 Social History Social History Smoking packs per day: 1 Smoking cigarettes per day: 20.0 Smoking status: Former smoker Tobacco type: cigarettes and e-cigarettes/vaping Alcohol intake: never Substance use: never Gender identity (if verbalized by the patient): Male Exam Const: General: healthy appearing and no acute distress Nutritional Appearance: well nourished Orientation/consciousness: patient oriented x3 Limitations: no limitations HENMT: Head: normal to inspection Ears: external ears normal, TM's normal bilaterally and EAC's normal General nose exam: Normal external nose present and Normal nares present Face and sinus: normal facial exam and sinuses nontender Mouth: Yes Normal oral and palatal mucosa present and Yes moist mucous membranes Teeth and gingiva: dentition normal Throat: posterior oropharynx normal Other: edentulous right upper gum. other teeth were carious. Eyes: Conjunctivae: conjunctivae normal Pupils: Equal, round and reactive pupils present EOM: EOMs intact bilaterally Neck: Neck: normal visual inspection, no lymphadenopathy and no meningeal signs Chest: Chest palpation & inspection: normal inspection of the chest Resp: Effort & Inspection: normal respiratory effort Auscultation: clear to auscultation bilaterally Cardio: Rate: regular rate Rhythm: regular rhythm GI: GI Palp: Yes Soft to palpation and No Tenderness to palpation present (GI) Ausc
[2021-09-22] MEDS: cloNIDine HCL 0.2 MG TABLET PO (22:30)
[2021-09-22] MEDS: cefTRIAXone 1 GM, LIDOCAINE HCL 1% LOCAL INJ 2.1 ML IM (22:30)
[2021-09-22] MEDS: KETOROLAC (*BKC) 60 MG/2 ML VIAL IM (22:30)
[2021-09-22 23:08] VITALS: BP 140/92; PULSE 60; RESP 18; O2SAT 97
== END 2021-09-22 23:09 | disposition home or self-care (01) ==
PROVIDERS: Emergency Provider Emergency Medicine; PCP Family Medicine
DX: R03.0 Elevated blood-pressure reading, without diagnosis of hypertension (principal); K08.89 Other specified disorders of teeth and supporting structures; K02.9 Dental caries, unspecified
CPT/HCPCS: 96372; 99284; A9270; J0696; J1885

== ENCOUNTER 2023-03-16 15:53 | Outpatient (CLI) | payer OTHER, SELFPAY ==
[2023-03-16 16:20] LABS: Basophils Absolute Auto 0.05 K/mm3 (0.00-0.10); Basophils Percent Auto 0.6 % (0.0-1.0); Eosinophils Absolute Auto 0.28 K/mm3 (0.02-0.50); Eosinophils Percent Auto 3.5 % (1.0-6.0); Hematocrit 49.7 % (40.0-54.0); Hemoglobin 16.7 g/dL (14.0-18.0); Immature Granulocyte Absolute 0.03 K/mm3 (0.00-0.00); Immature Granulocyte Percent A 0.4 % (0.0-0.0); Lymphocytes Absolute Auto 3.26 K/mm3 (1.10-4.50); Lymphocytes Percent Auto 40.8 % (18.0-42.0); Mean Corpuscular HGB Conc 33.6 g/dL (32.0-36.0); Mean Corpuscular Hemoglobin 28.4 pg (27.0-31.0); Mean Corpuscular Volume 84.7 fL (78.0-102.0); Mean Platelet Volume 9.3 fl (8.7-11.0); Monocytes Absolute Auto 0.67 K/mm3 (0.10-0.90); Monocytes Percent Auto 8.4 % (2.0-11.0); Neutrophils Absolute Auto 3.7 K/mm3 (1.7-7.2); Neutrophils Percent Auto 46.3 % (50.0-70.0); Platelet Count Result 350 K/mm3 (150-420); Red Blood Count 5.87 M/mm3 (4.70-6.10); Red Cell Distribution Width 12.4 % (11.6-14.4)
[2023-03-16 16:22] LABS: Appearance Urine Clear (Clear); Bilirubin Urine Negative (Negative); Blood Urine Negative (Negative); Color Urine Yellow (Yellow); Glucose Urine UA Negative (Negative); Ketones Urine Negative (Negative); Leukocyte Esterase Ur Negative (Negative); Nitrate Urine Negative (Negative); Protein Urine Trace (Negative); Urobilinogen Urine 0.2 mg/dL (0.2-1.0)
[2023-03-16 16:43] LABS: Add Urine Microscopic? YES; Bacteria Urine Trace /hpf; RBC Urine None seen /hpf (0-2); Squamous Epithelial Cell Urine Rare /hpf (Few); WBC Urine None seen /hpf (0-3)
[2023-03-16 16:48] LABS: Alanine Aminotransferase 55 U/L (16-63); Alkaline Phosphatase 127 U/L (46-116); Anion Gap 7 mmol/L (8-16); Bilirubin,Total 0.3 mg/dL (0.00-1.00); Blood Urea Nitrogen 13 mg/dL (7-18); Calcium 8.7 mg/dL (8.5-10.1); Carbon Dioxide 33 mmol/L (21-32); Chloride 100 mmol/L (98-108); Estimated Glomerular Filt Rate > 60; Potassium 4.5 mmol/L (3.5-5.1); Sodium 140 mmol/L (136-145); Total Protein 8.3 g/dL (6.4-8.2)
[2023-03-16 16:57] LABS: Glucose 94 mg/dL (70-99); Osmolality Calculated 290 mOsm/kg (285-295)
[2023-03-16 17:06] LABS: HIV 1 P24 AG Negative (Negative); HIV 1/2 AB Negative (Negative)
[2023-03-16 17:27] LABS: Aspartate Amino Transferase 26 U/L (15-37); CRP < 0.5 mg/dL (0.0-0.9)
[2023-03-17 08:47] LABS: Chlamydia trachomatis NOT DETECTED (NOT DETECTE); Neisseria gonorrhoeae PCR NOT DETECTED (NOT DETECTE)
[2023-03-18 15:14] LABS: RPR Screen Non-Reactive (Non-Reactive)
[2023-03-20 20:05] LABS: Hepatitis C Virus Antibody Nonreactive
== END 2023-03-16 15:54 | disposition home or self-care (01) ==
LOC: CHSLAB 15:54
PROVIDERS: PCP Nurse Practitioner Family; Visit Provider Nurse Practitioner Family
DX: Z11.3 Encounter for screening for infections with a predominantly sexual mode of transmission (principal); R30.0 Dysuria; R10.814 Left lower quadrant abdominal tenderness
CPT/HCPCS: 36415; 80053; 81001; 85025; 86140; 86592; 86695; 86696; 86803; 87086; 87491; 87591; 87806

== ENCOUNTER 2023-03-19 12:22 | Outpatient (CLI) | payer OTHER, SELFPAY ==
--- NOTE | ~2023-03-19 | US_ITS ---
US abdomen complete DATE: 03/19/2023 12:51 INDICATION: Left lower quadrant abdominal pain. Possible left lower quadrant cyst TECHNIQUE: Real-time imaging and Doppler analysis of the abdomen COMPARISON: 03/10/2021 complete abdominal ultrasound examination CT abdomen pelvis FINDINGS: Normal caliber of the abdominal aorta. The inferior vena cava is unremarkable. There is suboptimal visualization of the pancreas. There are multiple mobile filling defects of the gallbladder consistent with cholelithiasis. No hepatic space-occupying mass lesion is evident. Normal hepatopedal portal venous flow direction. No renal mass lesion or hydronephrosis. No evidence of splenomegaly. IMPRESSION: Cholelithiasis Suboptimal demonstration of the pancreas Reviewed, dictated and finalized at [facility]. Reviewed, dictated and finalized at [facility]. 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
== END 2023-03-19 12:23 | disposition home or self-care (01) ==
LOC: CHSIMG 12:23
PROVIDERS: PCP Nurse Practitioner Family; Visit Provider Nurse Practitioner Family
DX: D23.5 Other benign neoplasm of skin of trunk (principal); R30.0 Dysuria; R10.814 Left lower quadrant abdominal tenderness; K80.20 Calculus of gallbladder without cholecystitis without obstruction
CPT/HCPCS: 76700

== ENCOUNTER 2023-09-13 17:18 | Emergency (ER) | payer OTHER, SELFPAY ==
[2023-09-13 17:19] VITALS: BP 142/94; PULSE 97; RESP 18; TEMP 36.9; O2SAT 99
--- NOTE | 2023-09-13 17:26 | ED.SOB ---
HPI - SOB/Dyspnea General Chief Complaint: Nausea/Vomiting/Diarrhea Stated Complaint: loose stools Time Seen by Provider: 09/13/23 17:22 History of Present Illness HPI Narrative: Pt presen ts with numerous episodes of vomiting and diarrhea over the last 24 hours. Pt says he is not able to keep anything down and is having almost pure liquid diarrhea. PT says he had similar but less severe symptoms. Pt also has MCFADDEN and low grade temp. Related Data Home Medications Medication Instructions Recorded Confirmed aripiprazole 5 mg tablet 5 mg PO DAILY 09/13/23 09/13/23 gabapentin 100 mg capsule 100 mg PO BID 09/13/23 09/13/23 hydroxyzine pamoate 25 mg capsule 25 mg PO TID PRN Anxiety 09/13/23 09/13/23 lisdexamfetamine 40 mg capsule 40 mg PO DAILY 09/13/23 09/13/23 (Vyvanse) sertraline 50 mg tablet 50 mg PO DAILY 09/13/23 09/13/23 Allergies Allergy/AdvReac Type Severity Reaction Status Date / Time iodine Allergy Unknown Unknown Verified 09/13/23 18:19 Review of Systems Review of Systems: All systems reviewed & are unremarkable except as noted in HPI and below PMFSH Past Medical History Medical History ASD (atrial septal defect) Elevated blood pressure reading in office without diagnosis of hypertension Family history of early CAD Migraines Patient denies medical problems Viral syndrome Surgical History Surgical History H/O eye surgery H/O oral surgery Family History Family History Father Acute myocardial infarction, Onset Age: 40 Social History Social History Smoking packs per day: 1 Smoking cigarettes per day: 20.0 Smoking status: Former smoker Tobacco type: cigarettes and e-cigarettes/vaping Alcohol intake: never Substance use: never Living arrangements: with family Gender identity (if verbalized by the patient): Male Exam Const: General: healthy appearing and no acute distress Nutritional Appearance: well nourished Orientation/consciousness: patient oriented x3 Limitations: no limitations Chest: Chest palpation & inspection: normal inspection of the chest Resp: Effort & Inspection: normal respiratory effort Auscultation: clear to auscultation bilaterally Cardio: Rate: regular rate Rhythm: regular rhythm GI: GI Palp: Yes Soft to palpation and No Tenderness to palpation present (GI) Skin: General skin exam: normal color Rashes: no rashes Wounds: no wounds Neuro: General: patient oriented x3, moves all extremities, no meningeal signs and no focal motor deficits Speech: normal speech Extrem: General: normal to inspection and no clubbing, cyanosis or edema Psych: Mental Status: mental status grossly normal Affect: normal affect Attitude: cooperative Course Vital Signs Vital signs: Vital Signs Temperature 98.4 F 09/13/23 17:19 Pulse Rate 97 09/13/23 17:19 Respiratory Rate 18 09/13/23 17:19 Blood Pressure 142/94 H 09/13/23 17:19 Pulse Oximetry 99 09/13/23 17:19 Oxygen Delivery Room Air 09/13/23 17:19 Temperature 98.4 F 09/13/23 17:19 Pulse Rate 88 09/13/23 18:26 Respiratory Rate 16 09/13/23 18:26 Blood Pressure 127/70 09/13/23 18:26 Pulse Oximetry 99 09/13/23 18:26 Oxygen Delivery Room Air 09/13/23 18:26 MDM - SOB/Dyspnea MDM Narrative Medical decision making narrative: Pt presents with numerous episodes of vomiting and diarrhea over the last 24 hrs. Likely viral gastroenteritis as pt has no significant abdominal pain and had similar issues. Will check electrolytes and cbc and give IV fluids and zofran. Pt still has MCFADDEN and has not peed. Will give some fentanyl and another liter of fluids. Pt much better after second bag of fluids and fentanyl. MCFADDEN resolved. Home on zofran and lomotil. Lab [facility]
[2023-09-13] MEDS: SODIUM CHLORIDE 0.9% IV 1,000 ML 999 ML IV CONT ×2 (17:35→18:05)
[2023-09-13 17:37] LABS: Basophils Absolute Auto 0.02 K/mm3 (0.00-0.10); Basophils Percent Auto 0.2 % (0.0-1.0); Eosinophils Absolute Auto 0.07 K/mm3 (0.02-0.50); Eosinophils Percent Auto 0.6 % (1.0-6.0); Hematocrit 49.8 % (40.0-54.0); Hemoglobin 17.2 g/dL (14.0-18.0); Immature Granulocyte Absolute 0.05 K/mm3 (0.00-0.00); Immature Granulocyte Percent A 0.4 % (0.0-0.0); Lymphocytes Absolute Auto 2.46 K/mm3 (1.10-4.50); Lymphocytes Percent Auto 21.9 % (18.0-42.0); Mean Corpuscular HGB Conc 34.5 g/dL (32-36); Mean Corpuscular Hemoglobin 28.9 pg (27.0-31.0); Mean Corpuscular Volume 83.7 fL (78.0-102.0); Monocytes Absolute Auto 0.65 K/mm3 (0.10-0.90); Monocytes Percent Auto 5.8 % (2.0-11.0); Neutrophils Percent Auto 71.1 % (50.0-70.0); Platelet Count Result 351 K/mm3 (150-420); Red Blood Count 5.95 M/mm3 (4.70-6.10); Red Cell Distribution Width 12.8 % (11.6-14.4); White Blood Count 11.3 K/mm3 (4.8-10.8)
[2023-09-13] MEDS: KETOROLAC 15 MG/ML VIAL (*BKC) IV PUSH (17:38)
[2023-09-13] MEDS: ONDANSETRON INJ 4 MG/2 ML VIAL IV PUSH (17:40)
[2023-09-13 17:52] LABS: Alanine Aminotransferase 70 U/L (16-63); Albumin Level 4.3 g/dL (3.4-5.0); Alkaline Phosphatase 141 U/L (46-116); Anion Gap 12 mmol/L (4-12); Aspartate Amino Transferase 26 U/L (15-37); Bilirubin,Total 0.5 mg/dL (0.00-1.00); Blood Urea Nitrogen 12 mg/dL (7-18); Calcium 9.4 mg/dL (8.5-10.1); Carbon Dioxide 25 mmol/L (21-32); Chloride 99 mmol/L (98-108); Estimated CRCL calculation 78 ml/min; Estimated Glomerular Filt Rate > 60; Glucose 128 mg/dL (70-99); Osmolality Calculated 283 mOsm/kg (285-295); Potassium 3.6 mmol/L (3.5-5.1); Sodium 136 mmol/L (136-145); Total Protein 8.8 g/dL (6.4-8.2)
[2023-09-13] MEDS: fentaNYL CITRATE INJ (*CRX) 100 MCG/2 ML VIAL 50 MCG IV PUSH (18:05)
[2023-09-13 18:26] VITALS: BP 127/70; PULSE 88; RESP 16; O2SAT 99
== END 2023-09-13 18:35 | disposition home or self-care (01) ==
PROVIDERS: Emergency Provider Emergency Medicine; PCP Family Medicine
DX: K52.9 Noninfective gastroenteritis and colitis, unspecified (principal); Z79.899 Other long term (current) drug therapy; Z87.891 Personal history of nicotine dependence
CPT/HCPCS: 36415; 80053; 85025; 96374; 96375; 99284; J1885; J2405; J3010; J7030

== ENCOUNTER 2024-05-09 11:58 | Emergency (ER) | payer OTHER, SELFPAY ==
--- NOTE | ~2024-05-09 | CT_ITS ---
EXAMINATION: CT abdomen pelvis wo con DATE: 05/09/2024 15:21 INDICATION: ab pain TECHNIQUE: Computed tomography (CT) of the abdomen and pelvis was performed without intravenous contr ast. Automated exposure control and iterative reconstruction technique were employed. The dose-length product was 365.67 mGy-cm. COMPARISON: 03/30/2019. FINDINGS: Lower thorax: Partially visualized subsegmental focus of tree-in-bud opacities in the right lower lob e Liver: Normal. Biliary/Gallbladder: Cholelithiasis. No inflammatory change. No bile duct dilation. Pancreas: No mass or duct dilation. Spleen: Normal. Adrenals:No mass. Kidneys: No suspicious mass, obstructing stone, or hydronephrosis. GI tract: Small hiatal hernia. Mild distal esophageal wall edema. No small or large bowel dilation. N ormal appendix. Mesentery/Peritoneum: No ascites, mass, or free air. Mild small bowel mesenteric fat stranding. Multi ple prominent mesenteric lymph nodes with mild surrounding stranding and early fat halos. Retroperitoneum: No mass. Pelvis: Pelvic organs are within normal limits. Soft Tissues: Small fat-containing uncomplicated appearing umbilical hernia. Bones: No acute osseous finding. IMPRESSION: Small focus of right lower lobe atypical infection, airways disease, or aspiration. Esophagitis. Mild nonspecific mesenteric edema, versus mild inflammatory changes can be seen with enteritis. Mesenteric lymph nodes findings may suggest the presence of mesenteric panniculitis in the appropriat e clinical context. Reviewed, dictated and finalized at location K. IMPRESSION: Small focus of right lower lobe atypical infection, airways disease, or aspirat ion. Esophagitis. Mild nonspecific mesenteric edema, versus mild inflammatory changes can be seen with enteritis. Mesenteric lymph nodes findings may suggest the presence of mesenteric pannicul itis in the appropriate clinical context.
[2024-05-09 12:08] VITALS: BP 129/92; PULSE 79; RESP 18; TEMP 36.6; O2SAT 100
--- NOTE | 2024-05-09 12:52 | PC.NURSE ---
Pt asked to give give urine sample and he states he is unable to at this time. Specimen cup provided to patient when he feels he can provide a sample.
[2024-05-09 12:55] LABS: Basophils Percent Auto 0.1 % (0.2-1.2); Eosinophils Absolute Auto 0.1 K/mm3 (0-0.3); Eosinophils Percent Auto 0.6 % (0-4.4); Hematocrit 47.8 % (42.0-52.0); Hemoglobin 16.7 g/dL (14.0-18.0); Immature Granulocyte Absolute 0.04 K/mm3 (0.00-0.031); Immature Granulocyte Percent A 0.4 % (0-0.5); Lymphocytes Absolute Auto 1.65 K/mm3 (0.9-3.2); Lymphocytes Percent Auto 16.1 % (18.3-44.2); Mean Corpuscular HGB Conc 34.9 g/dl (32-36); Mean Corpuscular Hemoglobin 29.4 pg (26-34); Mean Corpuscular Volume 84.2 fl (80-100); Mean Platelet Volume 9.3 fl (7.4-10.4); Monocytes Absolute Auto 0.6 K/mm3 (0.1-0.6); Monocytes Percent Auto 5.8 % (2.6-8.5); Neutrophils Absolute Auto 7.9 K/mm3 (1.3-6.7); Platelet Count Result 324 k/mm3 (150-375); Red Blood Count 5.68 M/mm3 (4.6-6.20); Red Cell Distribution Width 12.6 % (11.5-14.5); White Blood Count 10.2 K/mm3 (4.5-10.0)
[2024-05-09] MEDS: SODIUM CHLORIDE 0.9% IV 2,000 ML 999 ML IV CONT (12:57)
[2024-05-09 13:19] LABS: Alanine Aminotransferase 55 U/L (6-50); Albumin Level 4.9 g/dL (3.5-5.1); Alkaline Phosphatase 136 U/L (38-126); Anion Gap 13 mmol/L (4-12); Aspartate Amino Transferase 26 U/L (17-59); Bilirubin,Total 0.5 mg/dL (0.2-1.3); Blood Urea Nitrogen 11 mg/dL (9-20); Calcium 9.6 mg/dL (8.4-10.2); Carbon Dioxide 21 mmol/L (22-30); Chloride 105 mmol/L (98-107); Estimated CRCL calculation 108 ml/min; Estimated Glomerular Filt Rate > 60; Glucose 114 mg/dL (65-110); Lipase 43 U/L (23-300); Potassium 4.2 mmol/L (3.4-5.0); Sodium 139 mmol/L (137-145)
--- NOTE | 2024-05-09 13:31 | ED_ITS ---
HPI - General Adult General Chief complaint: Abdominal Pain Stated complaint: Diarrhea and abd pain x 5 days Time Seen by Provider: 05/09/24 12:45 History of Present Illness HPI narrative: 33-year-old male present to the emergency department for evaluation for 5 days of nausea vomiting diarrhea and left lower quadrant abdominal pain. Patient states he did have follow-up yesterday at [place] and did have a CT scan and labs. Patient reports there is no abnormalities and a CT scan or his labs. Patient was discharged home with Zofran, Imodium and hydrocodone. Patient states since that time he has had persistent symptoms and feels that his abdominal pain has continued to worsen. Patient denies any significant past medical history. Related Data Home Medications ?Medication ?Instructions ?Recorded ?Confirmed ?Last Taken ?Type aripiprazole 5 mg tablet 5 mg PO DAILY 09/13/23 09/13/23 09/12/23 History gabapentin 100 mg capsule 100 mg PO BID 09/13/23 09/13/23 09/12/23 History hydroxyzine pamoate 25 mg capsule 25 mg PO TID PRN Anxiety 09/13/23 09/13/23 09/12/23 History lisdexamfetamine 40 mg capsule 40 mg PO DAILY 09/13/23 09/13/23 09/12/23 History (Vyvanse) sertraline 50 mg tablet 50 mg PO DAILY 09/13/23 09/13/23 09/12/23 History Allergies Allergy/AdvReac Type Severity Reaction Status Date / Time iodine Allergy Unknown Unknown Verified 05/09/24 12:00 Review of Systems 2 Review of Systems: All systems reviewed & are unremarkable except as noted in HPI and below PMFSH Past Medical History Medical History ASD (atrial septal defect) Elevated blood pressure reading in office without diagnosis of hypertension Family history of early CAD Migraines Patient denies medical problems Viral syndrome Surgical History Surgical History H/O eye surgery H/O oral surgery Family History Family History Father Acute myocardial infarction, Onset Age: 40 Social History Social History (Reviewed 03/16/23 @ 16:50 by TOBI Escobar Smoking packs per day: 1 Smoking cigarettes per day: 20.0 Smoking status: Former smoker Tobacco type: cigarettes and e-cigarettes/vaping Alcohol intake: never Substance use: never Living arrangements: with family Gender identity (if verbalized by the patient): Male Exam 2 Narrative: APPEARANCE: Well appearing, no pain, no distress, well-nourished. HEAD: normocephalic, atraumatic. EYES: PERRLA/EOMI, conjunctivae clear. NOSE: Normal no drainage EARS:TMS clear with good light reflex. THROAT: Pharynx clear, no exudate. NECK: Supple. No adenopathy, no masses. RESPIRATORY: Airway patent, respirations nonlabored. Clear to auscultation bilaterally, no rales, rhonchi, wheezing. CARDIOVASCULAR: Regular rate and rhythm without murmurs rubs or gallops. ABDOMINAL: Left lower quadrant abdominal pain MUSCULOSKELETAL: Moves all extremities. Strength/ROM intact, No edema, No calf tenderness. NEURO: Alert. Cranial nerves II through XII intact. Good gait. Good coordination SKIN: Warm, dry. Normal Color Course Vital Signs Vital signs: Vital Signs Temperature 97.9 F 05/09/24 12:08 Pulse Rate 79 05/09/24 12:08 Respiratory Rate 18 05/09/24 12:08 Blood Pressure 129/92 H 05/09/24 12:08 Pulse Oximetry 100 05/09/24 12:08 Oxygen Delivery Room Air 05/09/24 12:08 Temperature 97.9 F 05/09/24 12:08 Pulse Rate 79 05/09/24 12:08 Respiratory Rate 18 05/09/24 12:08 Blood Pressure 129/92 H 05/09/24 12:08 Pulse Oximetry 100 05/09/24 12:08 Oxygen Delivery Room Air 05/09/24 12:08 Medical Decision Making [facility] Narrative Medical decision making narrative: 33-year-old male presenting to the emergency department for evaluation for nausea vomiting diarrhea and worsening abdominal pain. Patient is afebrile but does have a minor leukocytosis of 10.2 and a stable hemoglobin of 16.7. Patient has no significant abnormalities on his CMP patient does have mild elevation ALT and alk phos. No acute abnormalities on the UA. CT scan showed a small focus of right lower lobe infection, airway disease or aspiration. Patient has no respiratory symptoms. CT scan also showed evidence nonspecific mesenteric edema which can be seen with enteritis. Patient will be started on Augmentin for possible panniculitis. Patient will be instructed to continue his medications for pain control and Zofran. Differential Diagnosis Differential Diagnosis: Colitis, diverticulitis, appendicitis, dehydration,, small-bowel obstruction, UTI Vital Signs Vital Signs: Vital Signs Temperature 97.9 F 05/09/24 12:08 Pulse Rate 79 05/09/24 12:08 Respiratory Rate 18 05/09/24 12:08 Blood Pressure 129/92 H 05/09/24 12:08 Pulse Oximetry 100 05/09/24 12:08 Oxygen Delivery Room Air 05/09/24 12:08 Temperature 97.9 F 05/09/24 12:08 Pulse Rate 79 05/09/24 12:08 Respiratory Rate 18 05/09/24 12:08 Blood Pressure 129/92 H 05/09/24 12:08 Pulse Oximetry 100 05/09/24 12:08 Oxygen Delivery Room Air 05/09/24 12:08 Lab Data Lab results reviewed: Yes I reviewed the patient's lab results. 05/09/24 12:46 05/09/24 12:46 Labs: Lab Results 05/09/24 05/09/24 Range/Units 12:46 14:26 WBC 10.2 H (4.5-10.0) K/mm3 RBC 5.68 (4.6-6.20) M/mm3 Hgb 16.7 (14.0-18.0) g/dL Hct 47.8 (42.0-52.0) % MCV 84.2 (80-100) fl MCH 29.4 (26-34) pg MCHC 34.9 (32-36) g/dl RDW 12.6 (11.5-14.5) % Plt Count 324 (150-375) k/mm3 MPV 9.3 (7.4-10.4) fl Immature Gran % (Auto) 0.4 (0-0.5) % Neut % (Auto) 77.0 H (45.5-73.1) % Lymph % (Auto) 16.1 L (18.3-44.2) % [place] % (Auto) 5.8 (2.6-8.5) % Eos % (Auto) 0.6 (0-4.4) % Baso % (Auto) 0.1 L (0.2-1.2) % Lymph # (Auto) 1.65 (0.9-3.2) K/mm3 [place] # (Auto) 0.6 (0.1-0.6) K/mm3 Eos # (Auto) 0.1 (0-0.3) K/mm3 Baso # (Auto) 0.0 (0.0-0.1) K/mm3 Abs Immat Gran (auto) 0.04 H (0.00-0.031) K/mm3 Absolute Neuts (auto) 7.9 H (1.3-6.7) K/mm3 Absolute Nucleated RBC 0.000 (0.0-0.012) K/mm3 Nucleated RBC % 0.0 (0.0-0.2) % Sodium 139 (137-145) mmol/L Potassium 4.2 (3.4-5.0) mmol/L Chloride 105 (98-107) mmol/L Carbon Dioxide 21 L (22-30) mmol/L Anion Gap 13 H (4-12) mmol/L BUN 11 (9-20) mg/dL Creatinine 0.81 (0.7-1.3) mg/dL Estim Creat Clear Calc 108 ml/min Estimated GFR > 60 (59 - ) Glucose 114 H (65-110) mg/dL Calcium 9.6 (8.4-10.2) mg/dL Total Bilirubin 0.5 (0.2-1.3) mg/dL AST 26 (17-59) U/L ALT 55 H (6-50) U/L Alkaline Phosphatase 136 H (38-126) U/L Total Protein 9.0 H (6.3-8.2) g/dL Albumin 4.9 (3.5-5.1) g/dL Lipase 43 (23-300) U/L Urine Color Yellow (Yellow) Urine Appearance Clear (Clear) Urine pH 5.0 (5.0-9.0) Ur Specific [place] 1.008 (1.001-1.035) Urine Protein Trace (Negative) mg/dL Urine Glucose (UA) Negative (Negative) mg/dL Urine Ketones Negative (Negative) mg/dL Ur Blood (Man) 1+ H (Negative) Urine Nitrate Negative (Negative) Urine Bilirubin Negative (Negative) Urine Urobilinogen 0.2 (<2.0) mg/dL Add Ur Microanalysis Reviewed Leukocyte Esterase Rfl Negative (Negative) JILLIAN/UL Urine RBC 0-2 (0-2) /hpf Urine WBC 0-5 (0-3) /hpf Ur Squamous Epith Cells None seen (Few) /hpf Urine Bacteria None seen /hpf Urine Casts 6-10 Hyaline Casts 1-2 (None) /lpf Urine Mucus Present /lpf Imaging Data Radiologist's impression: Impressions Abdomen/Pelvis CT 05/09/24 15:24 IMPRESSION: Small focus of right lower lobe atypical infection, airways disease, or aspiration. Esophagitis. Mild nonspecific mesenteric edema, versus mild inflammatory changes can be seen with enteritis. Mesenteric lymph nodes findings may suggest the presence of mesenteric panniculitis in the appropriate clinical context. Discharge Plan Discharge Clinical Impression: Nausea vomiting and diarrhea, Abdominal pain Patient Disposition: Home, Self-Care Condition: Stable Instructions: Antibiotic Form, Abdominal Pain (ED), Enteritis (ED), Clear Liquid Diet (ED) Additional Instructions: Continue your medication for pain control and Zofran for home. Switch to a clear liquid diet for the next 1-3 days. Antibiotic as directed until completed. Have close follow-up with your primary care physician. Patient Language: Albanian Prescriptions: New amoxicillin-pot clavulanate 875-125 mg tablet 1 tablet PO Q12H 7 Days Qty: 14 0RF No Action ondansetron 4 mg tablet,disintegrating 4 mg PO Q8H PRN (Reason: nausea and vomiting) Qty: 14 0RF diphenoxylate-atropine [Lomotil] 2.5-0.025 mg tablet 1 tablet PO TID PRN (Reason: diarrhea) Qty: 7 0RF gabapentin 100 mg capsule 100 mg PO BID sertraline 50 mg tablet 50 mg PO DAILY hydroxyzine pamoate 25 mg capsule 25 mg PO TID PRN (Reason: Anxiety) aripiprazole 5 mg tablet 5 mg PO DAILY lisdexamfetamine [Vyvanse] 40 mg capsule 40 mg PO DAILY lisdexamfetamine [Vyvanse] 30 mg capsule 30 mg PO DAILY Qty: 30 0RF Follow-up/Referrals: Palmer Chaidez M.D. [Primary Care Provider] -
--- OUTSIDE RECORDS SUMMARY | 2024-05-09 14:05 | XMS_ITS | Continuity of Care Document ---
Author Organization [facility] Address [address] [place] [id number] Phone Care Team Providers Care Manager Fire Name Role Phone CONV, [facility] Unavailable Unavailable Advance Directives Directive Yes / No Effective Date File Name No Information Encounters Encounter Description Practice Location Reason(s) For Visit Diagnoses Date Provider Providers Copied on Encounter [facility] /[facility], [address] [place] [address], [id number], [place] tel:[phone] Z [facility] CONV No Information CONV [facility]. [address] [place] [address], [id number], [place]. Family History Family Member Type Diagnosis Age At Onset No Information Immunizations Vaccine Date Status Comments [id number], PED/ADL administer ed Source: New Immunization Record ORAL POLIO administered Source: New Imm unization Record DPT/HIB COMBINATION administered Source: New Immunization Record HEP B VACCINE PED/ADOL administered Sourc e: New Immunization Record HIB 3 DOSE SERIES administered Source: Ne w Immunization Record DTP administered Source: New Imm unization Record HIB 3 DOSE SERIES administered Source: Ne w Immunization Record DTP administered Source: New Imm unization Record ORAL POLIO administered Source: New Imm unization Record HIB 3 DOSE SERIES administered Source: Ne w Immunization Record DTP administered Source: New Imm unization Record ORAL POLIO administered Source: New Imm unization Record HEP B VACCINE PED/ADOL administered Sourc e: New Immunization Record HEP B VACCINE PED/ADOL administered Sourc e: New Immunization Record Payers Payer name Insurance type Covered constitution party ID Authoriza tion(s) No Information Social History Type Description Quantity Date Captured Comments Sex Male Smoking Status No Information Chief Complaint And Reason For Visit No Information History Of Present Illness Encounter Date Complaint History Of Prese nt Illness No Information Instructions Date Instruction Additional Infor mation No Information Assessments Type Assessment Date No Information Patient Care Teams Name Effective Dates (start - stop) Status Members No Information
[2024-05-09 14:45] LABS: Add Urine Microscopic? YES; Appearance Urine Clear (Clear); Bacteria Urine None Seen /hpf; Bilirubin Urine Negative (Negative); Blood Urine 1+ (Negative); Color Urine Yellow (Yellow); Glucose Urine UA Negative (Negative); Ketones Urine Negative (Negative); Leukocyte Esterase Ur Negative LEU/UL (Negative); Mucus Urine Present /lpf; Need Manual Microscopic Reviewed; Nitrate Urine Negative (Negative); Protein Urine Trace mg/dL (Negative); RBC Urine 0-2 /hpf (0-2); Specific Grav Ur 1.008 (1.001-1.035); Squamous Epithelial Cell Urine None Seen /hpf (Few); Urobilinogen Urine 0.2 mg/dL (<2.0); WBC Urine 0-5 /hpf (0-3)
--- OUTSIDE RECORDS SUMMARY | 2024-05-09 15:12 | XMS_ITS | Continuity of Care Document ---
Author Organization [facility] Address [address] [place] [id number] Phone Care Team Providers Care Shoe Stock Associate Name Role Phone CONV, [facility] Unavailable Unavailable Advance Directives Directive Yes / No Effective Date File Name No Information Encounters Encounter Description Practice Location Reason(s) For Visit Diagnoses Date Provider Providers Copied on Encounter [facility] /[facility], [address] [place] [address], [id number], [place] tel:[phone] Z [facility] CONV No Information CONV [facility]. [address] [place] [address], [id number], [place]. Family History Family Member Type Diagnosis Age At Onset No Information Immunizations Vaccine Date Status Comments [id number], PED/ADL administer ed Source: New Immunization Record [...] Record Payers Payer name Insurance type Covered democrat ID Authoriza tion(s) No Information Social History [...]
== END 2024-05-09 16:15 | disposition home or self-care (01) ==
PROVIDERS: Emergency Provider Emergency Medicine; PCP Family Medicine
DX: R11.2 Nausea with vomiting, unspecified (principal); R19.7 Diarrhea, unspecified; R10.31 Right lower quadrant pain
CPT/HCPCS: 36415; 74176; 80053; 81001; 83690; 85025; 96360; 96361; 99284; J7030

== ENCOUNTER 2024-05-10 03:08 | Emergency (ER) | payer OTHER, SELFPAY ==
--- OUTSIDE RECORDS SUMMARY | 2024-05-10 03:11 | XMS_ITS | Continuity of Care Document ---
Author Organization [facility] Address [address] [place] [address] Phone Care Team Providers Care Hat Stock Laminating Machine Operator Name Role Phone CONV, [facility] Unavailable Unavailable Advance Directives Directive Yes / No Effective Date File Name No Information Encounters Encounter Description Practice Location Reason(s) For Visit Diagnoses Date Provider Providers Copied on Encounter [facility] /[facility], [address] [place] [address], [address], [place] tel:[phone] Z [facility] CONV No Information CONV [facility]. [address] [place] [address], [id number], [place]. Family History Family Member Type Diagnosis Age At Onset No Information Immunizations Vaccine Date Status Comments [id number], PED/ADL administer ed Source: New Immunization Record [...] Record Payers Payer name Insurance type Covered republican ID Authoriza tion(s) No Information Social History [...]
[2024-05-10 03:13] VITALS: BP 154/103; PULSE 66; RESP 16; TEMP 36.6; O2SAT 99
[2024-05-10 03:25] LABS: Basophils Percent Auto 0.2 % (0.2-1.2); Eosinophils Absolute Auto 0.1 K/mm3 (0-0.3); Hematocrit 47.3 % (42.0-52.0); Hemoglobin 16.4 g/dL (14.0-18.0); Immature Granulocyte Absolute 0.03 K/mm3 (0.00-0.031); Immature Granulocyte Percent A 0.3 % (0-0.5); Lymphocytes Absolute Auto 1.92 K/mm3 (0.9-3.2); Lymphocytes Percent Auto 20.3 % (18.3-44.2); Mean Corpuscular HGB Conc 34.7 g/dl (32-36); Mean Corpuscular Hemoglobin 29.6 pg (26-34); Mean Corpuscular Volume 85.4 fl (80-100); Mean Platelet Volume 9.2 fl (7.4-10.4); Monocytes Absolute Auto 0.8 K/mm3 (0.1-0.6); Monocytes Percent Auto 8.3 % (2.6-8.5); Neutrophils Absolute Auto 6.6 K/mm3 (1.3-6.7); Neutrophils Percent Auto 69.9 % (45.5-73.1); Platelet Count Result 310 k/mm3 (150-375); Red Blood Count 5.54 M/mm3 (4.6-6.20); Red Cell Distribution Width 12.6 % (11.5-14.5); White Blood Count 9.4 K/mm3 (4.5-10.0)
[2024-05-10 03:37] LABS: Alanine Aminotransferase 46 U/L (6-50); Albumin Level 4.6 g/dL (3.5-5.1); Alkaline Phosphatase 125 U/L (38-126); Anion Gap 12 mmol/L (4-12); Aspartate Amino Transferase 22 U/L (17-59); Bilirubin,Total 0.8 mg/dL (0.2-1.3); Blood Urea Nitrogen 9 mg/dL (9-20); Carbon Dioxide 24 mmol/L (22-30); Chloride 104 mmol/L (98-107); Estimated CRCL calculation 92 ml/min; Estimated Glomerular Filt Rate > 60; Glucose 106 mg/dL (65-110); Lipase 261 U/L (23-300); Potassium 4.2 mmol/L (3.4-5.0); Sodium 140 mmol/L (137-145)
--- OUTSIDE RECORDS SUMMARY | 2024-05-10 03:50 | XMS_ITS | Continuity of Care Document ---
Author Organization [facility] Address [address] [place] [address] Phone Care Team Providers Care Cardiology Nurse Name Role Phone CONV, [facility] Unavailable Unavailable Advance Directives Directive Yes / No Effective Date File Name No Information Encounters Encounter Description Practice Location Reason(s) For Visit Diagnoses Date Provider Providers Copied on Encounter [facility] /[facility], [address] [place] [address], [address], [place] tel:[phone] Z [facility] CONV No Information CONV [facility]. [address] [place] [address], [id number], [place]. Family History Family Member Type Diagnosis Age At Onset No Information Immunizations Vaccine Date Status Comments [id number], PED/ADL administer ed Source: New Immunization Record [...]
--- NOTE | 2024-05-10 04:25 | ED.NAVMDI ---
HPI - Nausea/Vomiting/Diarrhea General Chief complaint: Nausea/Vomiting/Diarrhea Stated complaint: same thing liquid runs Time Seen by Provider: 05/10/24 03:36 Source: patient Mode of arrival: ambulatory Limitations: no limitations History of Present Illness HPI Narrative: Patient presents with report of diarrhea of 1 week's duration. He was seen yesterday in this emergency department and at [facility] earlier in the week for the same. He is also having some abdominal pain cramping, in the left lower quadrant as well as right lower quadrant. He has photos of liquid stools that started as thin watery green then changing to water he yellow followed by clear stool with some fluffy pieces but now reports back to having brown thin stools like light chocolate milk as well as with mucus. 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 No known sick contacts. His is currently hospitalized in the Ob/labor and delivery unit of the hospital after giving recently to a baby girl now having bradycardia. He states he had fevers for the 1st several days, maximum 101 point fiber 102.7 but subsequently resolved and have not recurred. He has not been nauseated. He did have 1 episode of emesis while driving several days ago when he had become dizzy but this has also not recurred. This has never happened before. Does not follow regularly with gastroenterology. No recent travel, well water exposure, or recent antibiotic usage. Was prescribed antibiotics yesterday has deferred taking them given concern that they might make the diarrhea worse. He has been noting more eructation with sulfur burps yesterday. No previous abdominal surgeries. He has tried liquid IV and Imodium. He was prescribed Zofran and hydrocodone by [facility]. Related Data Home Medications ?Medication ?Instructions ?Recorded ?Confirmed ?Last Taken ?Type aripiprazole 5 mg tablet 5 mg PO DAILY 09/13/23 09/13/23 09/12/23 History gabapentin 100 mg capsule 100 mg PO BID 09/13/23 09/13/23 09/12/23 History hydroxyzine pamoate 25 mg capsule 25 mg PO TID PRN Anxiety 09/13/23 09/13/23 09/12/23 History lisdexamfetamine 40 mg capsule 40 mg PO DAILY 09/13/23 09/13/23 09/12/23 History (Vyvanse) sertraline 50 mg tablet 50 mg PO DAILY 09/13/23 09/13/23 09/12/23 History Allergies Allergy/AdvReac Type Severity Reaction Status Date / Time iodine Allergy Unknown Unknown Verified 05/10/24 04:08 [facility] Past Medical History Medical History Elevated blood pressure reading in office without diagnosis of hypertension Viral syndrome Family history of early CAD ASD (atrial septal defect) Migraines Patient denies medical problems Surgical History Surgical History H/O oral surgery H/O eye surgery Family History Family History Father Acute myocardial infarction, Onset Age: 40 Social History Social History Smoking packs per day: 1 Smoking cigarettes per day: 20.0 Smoking status: Former smoker Tobacco type: cigarettes and e-cigarettes/vaping Alcohol intake: never Substance use: never Living arrangements: with family Additional living arrangements comments: and baby (April 2024) Occupation/Education: unemployed Gender identity (if verbalized by the patient): Male Exam Narrative: GENERAL: Well-appearing, well-nourished, and in no acute distress. HEAD: Normocephalic, atraumatic. EYES: Non injected, non icteric ENT: Nares clear, no rhinorrhea or epistaxis. NECK: Supple. CHEST: Speaking in full sentences. No respiratory distress. HEART: Regular rate and rhythm. . ABDOMEN: Soft, nondistended. Mild tenderness to palpation in bilateral lower quadrants without rigidity or guarding. Not peritoneal. EXTREMITIES: Normal range of motion. No lower extremity edema. SKIN: Warm, dry, no rash. NEURO: No focal deficits. Alert and oriented x3. PSYCH: Normal mood and affect. Course Vital Signs Vital signs: Vital Signs Temperature 97.8 F 05/10/24 03:13 Pulse Rate 66 05/10/24 03:13 Respiratory Rate 16 05/10/24 03:13 Blood Pressure 154/103 H 05/10/24 03:13 Pulse Oximetry 99 05/10/24 03:13 Oxygen Delivery Room Air 05/10/24 03:13 Temperature 97.8 F 05/10/24 03:13 Pulse Rate 67 05/10/24 06:28 Respiratory Rate 16 05/10/24 06:28 Blood Pressure 121/82 05/10/24 06:28 Pulse Oximetry 99 05/10/24 06:28 Oxygen Delivery Room Air 05/10/24 03:13 MDM - Nausea/Vomiting/Diarrhea MDM Narrative Medical decision making narrative: Patient presents with diarrhea of 1 week's duration. He was seen in this emergency department yesterday for this and at [facility] earlier in the week. Symptoms persist. One episode of vomiting multiple days ago but with no recurrence. Not currently nauseated. Febrile for the 1st few days but has also since resolved. In the emergency department he is afebrile with vital signs notable for hypertension. The Differential for acute ( less than 14d) diarrhea includes infectious etiologies (viral, preformed toxins, toxins formed after colonization, invasive bacteria, and parasites), medications, inflammatory causes (IBD, radiation enteritis, ischemic colitis, diverticulitis), malabsorption, secretory causes, or motility disorders. CBC unremarkable, no leukocytosis. CMP unremarkable with normal renal function. CRP normal but ESR elevated. Given generally benign abdominal exam and that there has been no change in symptoms, will defer performing another CT scan given he just underwent one yesterday. C difficile negative. Patient given Bentyl. Prescribed a course of the same. Advised he can continue taking the ondansetron. Advised against using hydrocodone or Imodium. Discharge instructions with the natural progression. Additional stool sample studies are being processed by the [facility] but are send out tests after I verified this with lab staff. He is otherwise well-appearing without electrolyte abnormalities including potassium and magnesium. Normal renal function. Differential Diagnosis Differential diagnosis: Likely traveler's diarrhea, food poisoning, gastroenteritis, clostridium difficile infection, drug-induced nausea and vomiting and dehydration Medical Records Attestation: I reviewed the patient's medical records. Medical records narrative: CT scan performed yesterday, 05/09/24 IMPRESSION: Small focus of right lower lobe atypical infection, airways disease, or aspiration. Esophagitis. Mild nonspecific mesenteric edema, versus mild inflammatory changes can be seen with enteritis. Mesenteric lymph nodes findings may suggest the presence of mesenteric panniculitis in the appropriate clinical context. Lab Data Attestation: I reviewed the patient's lab results. Lab results narrative: Lipase normal 05/10/24 03:18 05/10/24 03:18 Labs: Lab Results 05/10/24 05/10/24 05/10/24 Range/Units 03:18 05:23 05:38 WBC 9.4 (4.5-10.0) K/mm3 RBC 5.54 (4.6-6.20) M/mm3 Hgb 16.4 (14.0-18.0) g/dL Hct 47.3 (42.0-52.0) % MCV 85.4 (80-100) fl MCH 29.6 (26-34) pg MCHC 34.7 (32-36) g/dl RDW 12.6 (11.5-14.5) % Plt Count 310 (150-375) k/mm3 MPV 9.2 (7.4-10.4) fl Immature Gran % (Auto) 0.3 (0-0.5) % Neut % (Auto) 69.9 (45.5-73.1) % Lymph % (Auto) 20.3 (18.3-44.2) % [place] % (Auto) 8.3 (2.6-8.5) % Eos % (Auto) 1.0 (0-4.4) % Baso % (Auto) 0.2 (0.2-1.2) % Lymph # (Auto) 1.92 (0.9-3.2) K/mm3 [place] # (Auto) 0.8 H (0.1-0.6) K/mm3 Eos # (Auto) 0.1 (0-0.3) K/mm3 Baso # (Auto) 0.0 (0.0-0.1) K/mm3 Abs Immat Gran (auto) 0.03 (0.00-0.031) K/mm3 Absolute Neuts (auto) 6.6 (1.3-6.7) K/mm3 Absolute Nucleated RBC 0.000 (0.0-0.012) K/mm3 Nucleated RBC % 0.0 (0.0-0.2) % ESR 49 H (0-20) mm/hr Sodium 140 (137-145) mmol/L Potassium 4.2 (3.4-5.0) mmol/L Chloride 104 (98-107) mmol/L Carbon Dioxide 24 (22-30) mmol/L Anion Gap 12 (4-12) mmol/L BUN 9 (9-20) mg/dL Creatinine 0.96 (0.7-1.3) mg/dL Estim Creat Clear Calc 92 ml/min Estimated GFR > 60 (59 - ) Glucose 106 (65-110) mg/dL Calcium 9.0 (8.4-10.2) mg/dL Magnesium 1.8 (1.6-2.3) mg/dL Total Bilirubin 0.8 (0.2-1.3) mg/dL AST 22 (17-59) U/L ALT 46 (6-50) U/L Alkaline Phosphatase 125 (38-126) U/L C-Reactive Protein 0.6 (<1.0) mg/dL Total Protein 8.0 (6.3-8.2) g/dL Albumin 4.6 (3.5-5.1) g/dL Lipase 261 (23-300) U/L Stool Calprotectin Pending Stool Rotavirus Antigen Pending Stool Norovirus (PCR) Pending C. difficile (PCR) Negative (NEGATIVE) Influenza A (RT-PCR) Negative (Negative) Influenza B (RT-PCR) Negative (Negative) SARS-CoV-2 RNA (RT-PCR) Negative (Negative) Discharge Plan Discharge Clinical Impression: Acute diarrhea, Elevated erythrocyte sedimentation rate Patient Disposition: Home, Self-Care Condition: Stable Instructions: Antibiotic Form, Acute Diarrhea (ED), Abdominal Pain (ED) Additional Instructions: Your labs were normal without evidence of kidney impairment/injury or electrolyte abnormalities. You tested negative for C difficile which is an infection that would require particular antibiotics. The other stool studies are send out labs. You can follow up on their results through the patient portal. Acute diarrhea is diarrhea that lasts 14 days or less and is typically a viral process and self limited. COntinue resting maintain your hydration. Water is fine but you can also supplement with Pedialyte or Gatorade (does not have to be name brand) if desired. If drinking juice, dilute it since some of these contain a lot of sugar. Avoid drinking milk as some viruses can cause a transient lactose intolerance. Follow-up with primary care physician. Return to the emergency department with new or worsening symptoms. I would advise against using the narcotic medication or Imodium AD if at all possible as you likely have a viral process that needs to run its course and slowing down the activity of your gut allows the organisms to sit in your gut longer. Patient Language: Colombian Prescriptions: New dicyclomine 10 mg capsule 20 mg PO BID PRN (Reason: abdominal pain) Qty: 20 0RF No Action ondansetron 4 mg tablet,disintegrating 4 mg PO Q8H PRN (Reason: nausea and vomiting) Qty: 14 0RF diphenoxylate-atropine [Lomotil] 2.5-0.025 mg tablet 1 tablet PO TID PRN (Reason: diarrhea) Qty: 7 0RF gabapentin 100 mg capsule 100 mg PO BID sertraline 50 mg tablet 50 mg PO DAILY hydroxyzine pamoate 25 mg capsule 25 mg PO TID PRN (Reason: Anxiety) aripiprazole 5 mg tablet 5 mg PO DAILY lisdexamfetamine [Vyvanse] 40 mg capsule 40 mg PO DAILY lisdexamfetamine [Vyvanse] 30 mg capsule 30 mg PO DAILY Qty: 30 0RF amoxicillin-pot clavulanate 875-125 mg tablet 1 tablet PO Q12H 7 Days Qty: 14 0RF Follow-up/Referrals: Palmer Chaidez M.D. [Primary Care Provider] - Stand Alone Forms: Work/School Release IP Time of Disposition: 07:33
--- NOTE | 2024-05-10 04:45 | PC.NURSE ---
Pt was instructed to provide a stool sample and hit his call light for it to be collected.
[2024-05-10 05:18] LABS: Magnesium 1.8 mg/dL (1.6-2.3)
[2024-05-10 05:24] LABS: CRP 0.6 mg/dL (<1.0)
[2024-05-10 06:17] LABS: Toxigenic C. Diff NEGATIVE (NEGATIVE)
[2024-05-10 06:20] LABS: Influenza A QL RT-PCR Negative (Negative); Influenza B QL RT-PCR Negative (Negative); SARS-CoV-2 RNA PCR Negative (Negative)
[2024-05-10 06:28] VITALS: BP 121/82; PULSE 67; RESP 16; O2SAT 99
[2024-05-10 06:50] LABS: Erythrocyte Sedimentation Rate 49 mm/hr (0-20)
[2024-05-10] MEDS: DICYCLOMINE HCL 10 MG CAPSULE PO (07:49)
[2024-05-14 14:59] LABS: Norovirus RNA PCR, Stool DETECTED
== END 2024-05-10 07:58 | disposition home or self-care (01) ==
PROVIDERS: Emergency Provider Student in an Organized Health Care Education/Training Program; PCP Family Medicine
DX: R19.7 Diarrhea, unspecified (principal); R70.0 Elevated erythrocyte sedimentation rate; Z20.822 Contact with and (suspected) exposure to COVID-19; Q21.10 Atrial septal defect, unspecified; Z87.891 Personal history of nicotine dependence
CPT/HCPCS: 36415; 80053; 83690; 83735; 83993; 85025; 85652; 86140; 87045; 87425; 87427; 87449; 87493; 87636; 87798; 89055; 99283; A9270

== ENCOUNTER 2024-07-12 12:16 | Emergency (ER) | payer OTHER, SELFPAY ==
--- NOTE | ~2024-07-12 | XR_ITS ---
CHEST RADIOGRAPH, PA AND LATERAL CLINICAL HISTORY: Epigastric chest pain . COMPARISON: 01/08/2021 TECHNIQUE: PA and lateral views of the chest. FINDINGS The cardiomediastinal silhouette is unremarkable. The lungs are clear. IMPRESSION: No focal infiltrate or effusion. Reviewed, dictated and finalized at location A.
--- OUTSIDE RECORDS SUMMARY | 2024-07-12 12:19 | XMS_ITS | Continuity of Care Document ---
Author Organization [facility] Address [address] [place] [id number] Phone Care Team Providers Care Electric Power Line Repairer Name Role Phone CONV, L[facility] Unavailable Unavailable Advance Directives Directive Yes / No Effective Date File Name No Information Encounters Encounter Description Practice Location Reason(s) For Visit Diagnoses Date Provider Providers Copied on Encounter [facility] /[facility], [address] [place] [address], [address], [place] tel:[phone] Z LCHD CONV No Information CONV [facility]. [address] [place] [address], [address], [place]. Family History Family Member Type Diagnosis Age At Onset No Information Immunizations Vaccine Date Status Comments [id number], PED/ADL administer ed Source: New Immunization Record [...]
[2024-07-12 12:30] VITALS: BP 135/82; PULSE 90; RESP 16; TEMP 36.6; O2SAT 99
--- NOTE | 2024-07-12 13:58 | PC.NURSE ---
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
--- OUTSIDE RECORDS SUMMARY | 2024-07-12 14:00 | XMS_ITS | Continuity of Care Document ---
Author Organization [facility] Address [address] [place] [address] Phone Care Team Providers Care Train Clerk Name Role Phone CONV, LCHD Unavailable Unavailable Advance Directives Directive Yes / No Effective Date File Name No Information Encounters Encounter Description Practice Location Reason(s) For Visit Diagnoses Date Provider Providers Copied on Encounter [facility] /[facility], [address] [place] [address], [address], [place] tel:[phone] Z LCHD CONV No Information CONV [facility]. [address] [place] [address], [address], [place]. Family History Family Member Type Diagnosis Age At Onset No Information Immunizations Vaccine Date Status Comments [id number], PED/ADL administer ed Source: New Immunization Record [...] Record Payers Payer name Insurance type Covered green party ID Authoriza tion(s) No Information Social [...]
== END 2024-07-12 15:25 | disposition left against medical advice (07) ==
PROVIDERS: Emergency Provider Emergency Medicine; PCP Family Medicine
DX: R50.9 Fever, unspecified (principal)
CPT/HCPCS: 71046; 99199

== ENCOUNTER 2024-07-12 15:14 | Emergency (ER) | payer OTHER, SELFPAY ==
[2024-07-12] VITALS (32 sets, daily range): BP systolic 106–135; BP diastolic 48–91; PULSE 95–112; RESP 18–20; TEMP 36.7–39.1; O2SAT 90–100
--- NOTE | ~2024-07-12 | CT_ITS ---
CT abdomen pelvis wo con Ordering provider: Joseph Graf MD History: 34 years Male with . hematuria, fever, left flank pain . Comparison: May 09, 2024 Technique: CT abdomen and pelvis without IV and without oral contrast. Automated exposure control and iterative reconstruction technique were employed. The dose-length product was 177.96 mGy-cm. Findings: VISUALIZED LOWER CHEST: Normal. UPPER ABDOMINAL ORGANS: Liver: Normal. Gallbladder: Cholelithiasis.. Spleen: Normal. Stomach/duodenum: Normal. Pancreas: Normal. Adrenals: Normal. Kidneys: Normal. PELVIC ORGANS: The bladder is underfilled. A BOWEL AND MESENTERY: Colon: No evidence of diverticulitis. Fecal material is loaded in the colon. Normal appendix. Small Bowel: Normal. No obstruction. Peritoneum/mesentery: No free air or free fluid. No mesenteric lymphadenopathy. RETROPERITONEUM: Normal aorta. No retroperitoneal lymphadenopathy. MUSCULOSKELETAL: Superficial soft tissues: The superficial soft tissues are normal. Bones: Normal spine. IMPRESSION: 1. No evidence of appendicitis, diverticulitis or intestinal obstruction. No definite renal stones. 2. Cholelithiasis. 3. Constipation. Reviewed, dictated and finalized at location A. IMPRESSION: 1. No evidence of appendicitis, diverticulitis or intestinal obstruction. No d efinite renal stones. 2. Cholelithiasis. 3. Constipation.
--- OUTSIDE RECORDS SUMMARY | 2024-07-12 15:19 | XMS_ITS | Continuity of Care Document ---
Author Organization [facility] Address [address] [place] [address] Phone Care Team Providers Care Foam Cutting Supervisor Name Role Phone CONV, LCHD Unavailable Unavailable Advance Directives Directive Yes / No Effective Date File Name No Information Encounters Encounter Description Practice Location Reason(s) For Visit Diagnoses Date Provider Providers Copied on Encounter [facility] /[facility], [address] [place] [address], [address], [place] tel:[phone] Z LCHD CONV No Information CONV [facility]. [address] [place] [address], [address], [place]. Family History Family Member Type Diagnosis Age At Onset No Information Immunizations Vaccine Date Status Comments [id number], PED/ADL administer ed Source: New Immunization Record [...]
--- NOTE | 2024-07-12 15:44 | ED.URI ---
HPI - URI/Sore Throat General Chief Complaint: Upper Respiratory Infection Stated Complaint: upper resp Source: patient Mode of arrival: ambulatory Limitations: no limitations History of Present Illness HPI Narrative: 34-year-old male with a history of migraine, PFO presents to the ED with a 2 day history of -- Fever -- sore throat with difficulty swallowing -- ear pain. No ear discharge. - dry cough no chest pain or shortness of breath no nausea/ vomiting /diarrhea MD elicited complaint: fever, cough and sore throat Onset (ago): day(s) ( 2 days) Consistency: constant Severity: moderate Able to tolerate fluids by mouth: Yes Exacerbating factors: nothing Relieving factors: nothing Associated symptoms: denies other symptoms, fever, sore throat, cough and shortness of breath Treatments prior to arrival: none Related Data Home Medications ?Medication ?Instructions ?Recorded ?Confirmed ?Last Taken ?Type aripiprazole 5 mg tablet 5 mg PO DAILY 09/13/23 09/13/23 09/12/23 History gabapentin 100 mg capsule 100 mg PO BID 09/13/23 09/13/23 09/12/23 History hydroxyzine pamoate 25 mg capsule 25 mg PO TID PRN Anxiety 09/13/23 09/13/23 09/12/23 History lisdexamfetamine 40 mg capsule 40 mg PO DAILY 09/13/23 09/13/23 09/12/23 History (Vyvanse) sertraline 50 mg tablet 50 mg PO DAILY 09/13/23 09/13/23 09/12/23 History Allergies Allergy/AdvReac Type Severity Reaction Status Date / Time iodine Allergy Unknown Unknown Verified 05/10/24 04:08 COUNTS INCLUDE 234 BEDS AT THE [facility] Past Medical History Medical History Elevated blood pressure reading in office without diagnosis of hypertension Viral syndrome Family history of early CAD ASD (atrial septal defect) Migraines Patient denies medical problems Surgical History Surgical History H/O oral surgery H/O eye surgery Family History Family History Father Acute myocardial infarction, Onset Age: 40 Social History Social History Smoking packs per day: 1 Smoking cigarettes per day: 20.0 Smoking status: Former smoker Tobacco type: cigarettes and e-cigarettes/vaping Alcohol intake: never Substance use: never Living arrangements: with family Additional living arrangements comments: and baby (April 2024) Occupation/Education: unemployed Gender identity (if verbalized by the patient): Male Exam Narrative: temperature of 39.1?. Heart rate of 102. Oxygen saturation of 100% on room air with a respiratory rate of 20. Const: General: no acute distress Nutritional Appearance: well nourished Orientation/consciousness: patient oriented x3 Limitations: no limitations HENMT: Head: normal to inspection Ears: external ears normal Face/Nose/Sinus: Normal external nose present Face and sinus: normal facial exam Mouth: Yes Normal oral and palatal mucosa present Throat: posterior oropharynx normal ( Pharyngeal erythema) Eyes: Conjunctivae: conjunctivae normal Pupils: Equal, round and reactive pupils present EOM: EOMs intact bilaterally Direct Ophthalmoscopy: no photophobia Neck: Neck: normal visual inspection, no meningeal signs and lymphadenopathy Other: tender upper cervical region. No lymphadenopathy palpated. Chest: Chest palpation & inspection: normal inspection of the chest Resp: Effort & Inspection: normal respiratory effort Auscultation: clear to auscultation bilaterally Cardio: Rate: regular rate Rhythm: regular rhythm GI: GI Palp: Yes Soft to palpation Auscultation: normal bowel sounds Other: No tenderness/ rigidity /rebound. : General: Yes no CVA tenderness Back/Spine/Pelvis: Back: no CVA tenderness Skin: General skin exam: normal color Rashes: no rashes Wounds: no wounds Neuro: General: patient oriented x3, moves all extremities, no meningeal signs, no focal motor deficits and CN's II-XI intact bilaterally Cranial nerves: Yes Nystagmus not present Speech: normal speech Extrem: General: normal to inspection and no clubbing, cyanosis or edema Psych: Mental Status: mental status grossly normal Affect: normal affect Attitude: cooperative Course Course Emergency Course: Febrile illness upper respiratory tract infection-- tested positive for strep. Post streptococcal glomerulonephritis-- patient is noted to a UA which is positive for protein and red blood cells. No white cells noted. The patient has BUN / creatinine of 11/1.1 with stable electrolytes. No evidence of hypertension. No volume overload. Will treat with penicillin. Vital Signs Vital signs: Vital Signs Temperature 39.1 C H 07/12/24 15:14 Pulse Rate 102 H 07/12/24 15:14 Respiratory Rate 20 07/12/24 15:14 Blood Pressure 135/86 07/12/24 15:14 Pulse Oximetry 100 07/12/24 15:14 Oxygen Delivery Room Air 07/12/24 15:14 Temperature 38.6 C H 07/12/24 16:46 Pulse Rate 101 H 07/12/24 16:46 Respiratory Rate 18 07/12/24 16:46 Blood Pressure 107/59 L 07/12/24 16:46 Pulse Oximetry 96 07/12/24 16:46 Oxygen Delivery Room Air 07/12/24 16:46 MDM - URI/Sore Throat MDM Narrative Medical decision making narrative: Strep pharyngitis post streptococcal glomerulonephritis Differential Diagnosis Differential diagnosis: Likely upper respiratory infection and viral infection Medical Records Attestation: I reviewed the patient's medical records. Lab Data Attestation: I reviewed the patient's lab results. 07/12/24 16:00 07/12/24 16:00 Labs: Lab Results 07/12/24 07/12/24 07/12/24 Range/Units 15:25 16:00 16:40 WBC 11.5 H (4.8-10.8) K/mm3 RBC 4.83 (4.70-6.10) M/mm3 Hgb 13.9 L (14.0-18.0) g/dL Hct 40.9 (40.0-54.0) % MCV 84.7 (78.0-102.0) fL MCH 28.8 (27.0-31.0) pg MCHC 34.0 (32-36) g/dL RDW 12.8 (11.6-14.4) % Plt Count 280 (150-420) K/mm3 MPV 9.2 (8.7-11.0) fl Immature Gran % (Auto) 0.3 H (0.0-0.0) % Neut % (Auto) 73.6 H (50.0-70.0) % Lymph % (Auto) 16.5 L (18.0-42.0) % [place] % (Auto) 9.3 (2.0-11.0) % Eos % (Auto) 0.0 L (1.0-6.0) % Baso % (Auto) 0.3 (0.0-1.0) % Lymph # (Auto) 1.89 (1.10-4.50) K/mm3 [place] # (Auto) 1.07 H (0.10-0.90) K/mm3 Eos # (Auto) 0.00 L (0.02-0.50) K/mm3 Baso # (Auto) 0.04 (0.00-0.10) K/mm3 Abs Immat Gran (auto) 0.04 H (0.00-0.00) K/mm3 Absolute Neuts (auto) 8.43 H (1.70-7.20) K/mm3 Absolute Nucleated RBC 0.00 (0.00-0.00) K/mm3 Nucleated RBC % 0.0 (0-0.0) % Sodium 135 L (137-145) mmol/L Potassium 3.9 (3.4-5.0) mmol/L Chloride 101 (98-107) mmol/L Carbon Dioxide 25 (22-30) mmol/L Anion Gap 9 (4-12) mmol/L BUN 11 (9-20) mg/dL Creatinine 1.11 (0.7-1.3) mg/dL Estim Creat Clear Calc 85 ml/min Estimated GFR > 60 (59 - ) Glucose 93 (65-110) mg/dL Calculated Osmolality 279 L (285-295) mOsm/kg Lactic Acid 1.8 (0.4-2.0) mmol/L Calcium 8.9 (8.4-10.2) mg/dL Total Bilirubin 1.0 (0.2-1.3) mg/dL AST 33 (17-59) U/L ALT 26 (6-50) U/L Alkaline Phosphatase 112 (38-126) U/L Total Protein 8.0 (6.3-8.2) g/dL Albumin 4.4 (3.5-5.1) g/dL Urine Color Yellow (Yellow) Urine Appearance Cloudy A (Clear) Urine pH 6.5 (5.0-8.0) Ur Specific [place] 1.015 (1.010-1.020) Urine Protein 2+ H (Negative) Urine Glucose (UA) Negative (Negative) Urine Ketones 1+ H (Negative) Ur Blood (Man) 3+ H (Negative) Urine Nitrate Negative (Negative) Urine Bilirubin 1+ H (Negative) Urine Urobilinogen 2.0 H (0.2-1.0) mg/dL Leukocyte Esterase Rfl Negative (Negative) JILLIAN/UL Urine RBC 11-20 H (0-2) /hpf Urine WBC None seen (0-3) /hpf Ur Squamous Epith Cells Few (Few) /hpf Urine Bacteria 2+ H (None) /hpf Granular Casts 1-2 H (None) /lpf Influenza A (RT-PCR) Negative (Negative) Influenza B (RT-PCR) Negative (Negative) RSV (RT-PCR) Negative (Negative) SARS-CoV-2 RNA (RT-PCR) Negative (Negative) Group A Strep (PCR) Detected A (Negative) Discharge Plan Discharge Clinical Impression: Pharyngitis, streptococcal, Acute post-streptococcal glomerulonephritis Patient Disposition: Home Condition: Stable Instructions: Antibiotic Form, Strep Throat (ED), Post-streptococcal Glomerulonephritis (DC) Patient Language: Lao Prescriptions: New amoxicillin 500 mg tablet 1,000 mg PO Q8H Qty: 60 0RF No Action ondansetron 4 mg tablet,disintegrating 4 mg PO Q8H PRN (Reason: nausea and vomiting) Qty: 14 0RF diphenoxylate-atropine [Lomotil] 2.5-0.025 mg tablet 1 tablet PO TID PRN (Reason: diarrhea) Qty: 7 0RF gabapentin 100 mg capsule 100 mg PO BID sertraline 50 mg tablet 50 mg PO DAILY hydroxyzine pamoate 25 mg capsule 25 mg PO TID PRN (Reason: Anxiety) aripiprazole 5 mg tablet 5 mg PO DAILY lisdexamfetamine [Vyvanse] 40 mg capsule 40 mg PO DAILY lisdexamfetamine [Vyvanse] 30 mg capsule 30 mg PO DAILY Qty: 30 0RF dicyclomine 10 mg capsule 20 mg PO BID PRN (Reason: abdominal pain) Qty: 20 0RF amoxicillin-pot clavulanate 875-125 mg tablet 1 tablet PO Q12H 7 Days Qty: 14 0RF Follow-up/Referrals: Lisa,Susy Noriega MD [Non-Staff] - Time of Disposition: 17:16
--- OUTSIDE RECORDS SUMMARY | 2024-07-12 15:58 | XMS_ITS | Continuity of Care Document ---
Author Organization [facility] Address [address] [place] [id number] Phone Care Team Providers Care Museum Educator Name Role Phone CONV, LCHD Unavailable Unavailable Advance Directives Directive Yes / No Effective Date File Name No Information Encounters Encounter Description Practice Location Reason(s) For Visit Diagnoses Date Provider Providers Copied on Encounter [facility] /[facility], [address] [place] [address], [address], [place] tel:[phone] Z LCHD CONV No Information CONV [facility]D. [address] [place] [address], [address], [place]. Family History Family Member Type Diagnosis Age At Onset No Information Immunizations Vaccine Date Status Comments [id number], PED/ADL administer ed Source: New Immunization Record [...] Record Payers Payer name Insurance type Covered libertarian ID Authoriza tion(s) No Information Social History [...]
[2024-07-12] MEDS: KETOROLAC 30 MG/ML VIAL (*BKC) IM (16:02)
[2024-07-12 16:06] LABS: Basophils Absolute Auto 0.04 K/mm3 (0.00-0.10); Basophils Percent Auto 0.3 % (0.0-1.0); Hematocrit 40.9 % (40.0-54.0); Hemoglobin 13.9 g/dL (14.0-18.0); Immature Granulocyte Absolute 0.04 K/mm3 (0.00-0.00); Immature Granulocyte Percent A 0.3 % (0.0-0.0); Lymphocytes Absolute Auto 1.89 K/mm3 (1.10-4.50); Lymphocytes Percent Auto 16.5 % (18.0-42.0); Mean Corpuscular Hemoglobin 28.8 pg (27.0-31.0); Mean Corpuscular Volume 84.7 fL (78.0-102.0); Mean Platelet Volume 9.2 fl (8.7-11.0); Monocytes Absolute Auto 1.07 K/mm3 (0.10-0.90); Monocytes Percent Auto 9.3 % (2.0-11.0); Neutrophils Absolute Auto 8.43 K/mm3 (1.70-7.20); Neutrophils Percent Auto 73.6 % (50.0-70.0); Platelet Count Result 280 K/mm3 (150-420); Red Blood Count 4.83 M/mm3 (4.70-6.10); Red Cell Distribution Width 12.8 % (11.6-14.4); White Blood Count 11.5 K/mm3 (4.8-10.8)
[2024-07-12 16:15] LABS: Strep Group A RT-PCR DETECTED (Negative)
[2024-07-12 16:16] LABS: Lactic Acid Reflex 1.8 mmol/L (0.4-2.0)
[2024-07-12 16:18] LABS: Alanine Aminotransferase 26 U/L (6-50); Albumin Level 4.4 g/dL (3.5-5.1); Alkaline Phosphatase 112 U/L (38-126); Anion Gap 9 mmol/L (4-12); Aspartate Amino Transferase 33 U/L (17-59); Blood Urea Nitrogen 11 mg/dL (9-20); Calcium 8.9 mg/dL (8.4-10.2); Carbon Dioxide 25 mmol/L (22-30); Chloride 101 mmol/L (98-107); Estimated CRCL calculation 85 ml/min; Estimated Glomerular Filt Rate > 60; Glucose 93 mg/dL (65-110); Osmolality Calculated 279 mOsm/kg (285-295); Potassium 3.9 mmol/L (3.4-5.0); Sodium 135 mmol/L (137-145)
--- NOTE | 2024-07-12 16:42 | PC.NURSE ---
noted urine in urinal to be cloudy tea color, specimen to lab
[2024-07-12 16:50] LABS: Add Urine Microscopic? YES; Bilirubin Urine 1+ (Negative); Blood Urine 3+ (Negative); Color Urine Yellow (Yellow); Glucose Urine UA Negative (Negative); Ketones Urine 1+ (Negative); Leukocyte Esterase Ur Negative LEU/UL (Negative); Nitrate Urine Negative (Negative); Protein Urine 2+ (Negative); Specific Grav Ur 1.015 (1.010-1.020); pH Urine 6.5 (5.0-8.0)
[2024-07-12 16:56] LABS: Influenza A QL RT-PCR Negative (Negative); Influenza B QL RT-PCR Negative (Negative); RSV RNA, RT-PCR Negative (Negative); SARS-CoV-2 RNA PCR Negative (Negative)
[2024-07-12 16:56] LABS: Appearance Urine Cloudy (Clear); Bacteria Urine 2+ /hpf; Squamous Epithelial Cell Urine Few /hpf (Few); WBC Urine None seen /hpf (0-3)
--- NOTE | 2024-07-12 17:44 | PC.NURSE ---
pt returned to room from xray department. awaiting results.
[2024-07-12] MEDS: AMOXICILLIN 500 MG CAPSULE 1000 MG PO (18:00)
[2024-07-14 06:18] LABS: Anti Streptolysin O Screen 1697 IU/mL (<200)
[2024-07-18 14:40] LABS: Strep DNASE B Antibody 751 U/mL (<301)
== END 2024-07-12 19:00 | disposition home or self-care (01) ==
PROVIDERS: Emergency Provider Internal Medicine Critical Care Medicine; PCP Registered Nurse
DX: J02.0 Streptococcal pharyngitis (principal); N00.8 Acute nephritic syndrome with other morphologic changes; Z87.891 Personal history of nicotine dependence; Z20.822 Contact with and (suspected) exposure to COVID-19
CPT/HCPCS: 36415; 74176; 80053; 81001; 83605; 85025; 86060; 86215; 87637; 87651; 96372; 99284; A9270; J1885

== ENCOUNTER 2024-09-20 15:39 | Emergency (ER) | payer OTHER, SELFPAY ==
[2024-09-20] VITALS (38 sets, daily range): BP systolic 107–141; BP diastolic 76–92; PULSE 61–108; RESP 10–22; TEMP 36.7–36.8; O2SAT 93–100
--- NOTE | ~2024-09-20 | XR_ITS ---
CHEST RADIOGRAPH CLINICAL HISTORY: chest pain . COMPARISON: 07/12/2024 TECHNIQUE: Single portable view of the chest. FINDINGS The cardiomediastinal silhouette is unremarkable. The lungs are clear. IMPRESSION: No focal infiltrate or effusion. Reviewed, dictated and finalized at location A.
--- NOTE | 2024-09-20 15:41 | ECG_ITS ---
Test Date: 2024-09-20 15:45:45 Measurements Intervals [place] Rate: 101 P: 71 OK: 166 QRS: 52 QRSD: 88 T: 56 QT: 318 QTc: 413 Interpretive Statements SINUS TACHYCARDIA POSSIBLE RIGHT ATRIAL ENLARGEMENT BASELINE ARTIFACT- I, II, III, AVR, AVL, AVF, V4-V6 BORDERLINE ECG No previous ECG available for comparison Electronically Signed On 09-20-2024 16:05:02 CDT by Primitivo Rice D.O.
--- NOTE | 2024-09-20 15:45 | ED_ITS ---
HPI - Chest Pain General Chief Complaint: Chest Pain Stated Complaint: chest pain Source: patient and family Mode of arrival: ambulatory Limitations: no limitations History of Present Illness HPI narrative: 34-year-old male with a history of smoking, recent post streptococcal glomerulonephritis presents to the ED with 1 hour history of -- right-sided chest pain which started acutely while working. The pain radiated to the right arm and the right leg. -- Generalized numbness and tingling especially of the fingertips and the toes. No nausea vomiting. No shortness of breath. No prior episodes of chest pain. MD complaint: chest pain Onset (ago): hour(s) ( Pain for 1 hour) Timing of current episode: constant Prior episodes: No Onset: during exertion Pain location: right chest Pain radiation: right arm Severity: severe Quality: aching and sharp Relieving factors: nothing Exacerbating factors: nothing Associated symptoms: nausea Treatment prior to arrival: none Risk Factors Coronary artery disease risk factors: smoking history Thoracic aortic dissection risk factors: none Related Data Home Medications ?Medication ?Instructions ?Recorded ?Confirmed ?Last Taken ?Type aripiprazole 5 mg tablet 5 mg PO DAILY 09/13/23 09/13/23 09/12/23 History gabapentin 100 mg capsule 100 mg PO BID 09/13/23 09/13/23 09/12/23 History hydroxyzine pamoate 25 mg capsule 25 mg PO TID PRN Anxiety 09/13/23 09/13/23 09/12/23 History lisdexamfetamine 40 mg capsule 40 mg PO DAILY 09/13/23 09/13/23 09/12/23 History (Vyvanse) sertraline 50 mg tablet 50 mg PO DAILY 09/13/23 09/13/23 09/12/23 History Allergies Allergy/AdvReac Type Severity Reaction Status Date / Time iodine Allergy Unknown Unknown Verified 09/20/24 19:24 Review of Systems 2 Review of Systems: All systems reviewed & are unremarkable except as noted in HPI and below Constitutional: Constitutional: Reports as per HPI and Reports no additional constitutional complaints Eyes: Eyes: Reports as per HPI and Reports no additional eye complaints ENT: Reports system reviewed and no additional complaints, except as documented and Reports as per HPI Cardiovascular: Cardiovascular: Reports as per HPI, Reports no additional cardiovascular complaints and Reports chest pain Respiratory: Respiratory: Reports as per HPI and Reports no additional respiratory complaints Gastrointestinal: Gastrointestinal: Reports as per HPI, Reports no additional gastrointestinal complaints and Reports nausea Genitourinary: Genitourinary: Reports no additional male genitourinary complaints and Reports as per HPI Musculoskeletal: Musculoskeletal: Reports no additional musculoskeletal complaints and Reports as per HPI Integumentary/Breasts: Skin/Breast: Reports system reviewed and no additional complaints, except as docu and Reports as per HPI Neurologic: Reports system reviewed and no additional complaints, except as documented and Reports as per HPI Psychiatric: Psychiatric: Reports anxiety Endocrine: Endocrine: Reports no additional endocrine complaints Hematologic/Lymphatic: Hematologic/Lymphatic: Reports no additional hematologic/lymphatic complaints and Reports as per HPI Allergic/Immunologic: Allergic/Immunologic: Reports no additional allergic/immunologic complaints and Reports as per HPI [facility] Past Medical History Medical History Elevated blood pressure reading in office without diagnosis of hypertension Viral syndrome Family history of early CAD ASD (atrial septal defect) Migraines Patient denies medical problems Surgical History Surgical History H/O oral surgery H/O eye surgery Family History Family History Father Acute myocardial infarction, Onset Age: 40 Social History Social History Smoking packs per day: 1 Smoking cigarettes per day: 20.0 Smoking status: Former smoker Tobacco type: cigarettes and e-cigarettes/vaping Alcohol intake: never Substance use: never Living arrangements: with family Additional living arrangements comments: and baby (April 2024) Occupation/Education: unemployed Gender identity (if verbalized by the patient): Male Exam 2 Narrative: vitals are stable. Heart rate of 107. Const: General: ill appearing Orientation/consciousness: patient oriented x3 Limitations: no limitations HENMT: Head: normal to inspection Ears: external ears normal F lisa/Nose/Sinus: Normal external nose present Face and sinus: normal facial exam Mouth: Yes Normal oral and palatal mucosa present Throat: posterior oropharynx normal Eyes: Conjunctivae: conjunctivae normal Pupils: Equal, round and reactive pupils present Direct Ophthalmoscopy: no photophobia Neck: Neck: normal visual inspection, no lymphadenopathy and no meningeal signs Chest: Chest palpation & inspection: normal inspection of the chest Resp: Effort & Inspection: normal respiratory effort Auscultation: clear to auscultation bilaterally Cardio: Rate: regular rate Rhythm: regular rhythm GI: Auscultation: normal bowel sounds Other: No tenderness/rigidity /rebound. : General: Yes no CVA tenderness Back/Spine/Pelvis: Back: no CVA tenderness Skin: General skin exam: normal color Rashes: no rashes Wounds: no wounds Neuro: General: patient oriented x3, moves all extremities, no meningeal signs, no focal motor deficits and CN's II-XI intact bilaterally Cranial nerves: Yes Nystagmus not present Speech: normal speech Gait exam (Neuro): Normal gait present Extrem: General: normal to inspection and no clubbing, cyanosis or edema Psych: Mental Status: mental status grossly normal Affect: Anxious affect present Attitude: cooperative Course Course Emergency Course: Right-sided chest pain-- EKG did not show any acute ST elevation. Troponin was negative. chest x-ray did not show any acute findings. acute renal failure with a BUN/ creatinine of 19/3. He had a bicarbonate of 20. Patient had a normal CK. Patient received 2 L of IV fluids following which his BUN/ creatinine was noted to be 20/2. 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 Patient has a history of post streptococcal glomerulonephritis. He presented on 07/12/2024 with sore throat and tested positive for strep. At that point he was noted to have hematuria, proteinuria, red blood cells in the urine. He was noted to have an ASO of 1700 and anti DNA ase of 750. patient has lactic acidosis with a serum lactate of 0.6 which decreased to 1.3 after 2 L of IV fluids. No obvious focus of infection. Patient has been accepted by Dr. Mixon from [facility] In [place]. Vital Signs Vital signs: Vital Signs Temperature 36.7 C 09/20/24 15:39 Pulse Rate 108 H 09/20/24 15:39 Respiratory Rate 22 H 09/20/24 15:39 Blood Pressure 107/85 09/20/24 15:39 Pulse Oximetry 99 09/20/24 15:39 Oxygen Delivery Room Air 09/20/24 15:39 Temperature 36.7 C 09/20/24 15:39 Pulse Rate 72 09/20/24 18:46 Respiratory Rate 15 08/06/25 18:46 Blood Pressure 121/77 09/20/24 18:46 Pulse Oximetry 95 09/20/24 18:46 Oxygen Delivery Room Air 09/20/24 18:39 MDM - Chest Pain MDM Narrative Medical decision making narrative: Post streptococcal glomerulonephritis acute renal failure chest pain Differential Diagnosis Differential diagnosis: Likely fracture of rib and atypical chest pain Medical Records Data Attestation: I reviewed the patient's medical records. Lab Data Attestation: I reviewed the patient's lab results. 09/20/24 15:57 09/20/24 17:52 Labs: Lab Results 09/20/24 09/20/24 09/20/24 Range/Units 15:57 16:50 17:52 WBC 10.6 (4.8-10.8) K/mm3 RBC 5.45 (4.70-6.10) M/mm3 Hgb 16.0 (14.0-18.0) g/dL Hct 45.4 (40.0-54.0) % MCV 83.3 (78.0-102.0) fL MCH 29.4 (27.0-31.0) pg MCHC 35.2 (32-36) g/dL RDW 13.0 (11.6-14.4) % Plt Count 477 H (150-420) K/mm3 MPV 9.2 (8.7-11.0) fl Immature Gran % (Auto) 0.4 H (0.0-0.0) % Neut % (Auto) 59.9 (50.0-70.0) % Lymph % (Auto) 31.4 (18.0-42.0) % [place] % (Auto) 7.0 (2.0-11.0) % Eos % (Auto) 0.8 L (1.0-6.0) % Baso % (Auto) 0.5 (0.0-1.0) % Lymph # (Auto) 3.34 (1.10-4.50) K/mm3 [place] # (Auto) 0.74 (0.10-0.90) K/mm3 Eos # (Auto) 0.08 (0.02-0.50) K/mm3 Baso # (Auto) 0.05 (0.00-0.10) K/mm3 Abs Immat Gran (auto) 0.04 H (0.00-0.00) K/mm3 Absolute Neuts (auto) 6.39 (1.70-7.20) K/mm3 Absolute Nucleated RBC 0.00 (0.00-0.00) K/mm3 Nucleated RBC % 0.0 (0-0.0) % PT 10.9 (9.50-12.1) Seconds INR 1.0 APTT 25.1 (23.9-30.70) Sec D-Dimer 0.50 (0.19-0.50) mg/L Sodium 139 138 (137-145) mmol/L Potassium 3.6 3.5 (3.4-5.0) mmol/L Chloride 98 100 (98-107) mmol/L Carbon Dioxide 21 L 28 (22-30) mmol/L Anion Gap 20 H 10 (4-12) mmol/L BUN 19 20 (9-20) mg/dL Creatinine 3.00 H 2.02 H (0.7-1.3) mg/dL Estim Creat Clear Calc 31 46 ml/min Estimated GFR 24 L 38 L (59 - ) Glucose 152 H 101 (65-110) mg/dL Calculated Osmolality 293 288 (285-295) mOsm/kg Lactic Acid 4.6 H (0.4-2.0) mmol/L Calcium 12.0 H 9.8 (8.4-10.2) mg/dL Total Bilirubin 0.8 (0.2-1.3) mg/dL AST 45 (17-59) U/L ALT 41 (6-50) U/L Alkaline Phosphatase 115 (38-126) U/L Total Creatine Kinase 192 H (55-170) U/L Troponin I < 0.012 (0.000-0.034) ng/mL NT-Pro-B Natriuret Pep Pending Total Protein 9.8 H (6.3-8.2) g/dL Albumin 5.7 H (3.5-5.1) g/dL Urine Color Yellow (Yellow) Urine Appearance Clear (Clear) Urine pH 5.5 (5.0-8.0) Ur Specific [place] >= 1.030 H (1.010-1.020) Urine Protein 2+ H (Negative) Urine Glucose (UA) Negative (Negative) Urine Ketones Trace H (Negative) Ur Blood (Man) 1+ H (Negative) Urine Nitrate Negative (Negative) Urine Bilirubin 1+ H (Negative) Urine Urobilinogen 1.0 (0.2-1.0) mg/dL Leukocyte Esterase Rfl Negative (Negative) JILLIAN/UL Urine RBC 3-5 H (0-2) /hpf Urine WBC 0-3 (0-3) /hpf Ur Squamous Epith Cells Few (Few) /hpf Calcium Oxalate Crystal Present H (None) /hpf Urine Bacteria 1+ H (None) /hpf Granular Casts 1-2 H (None) /lpf Urine Mucus Heavy H /lpf 09/20/24 Range/Units 18:13 WBC (4.8-10.8) K/mm3 RBC (4.70-6.10) M/mm3 Hgb (14.0-18.0) g/dL Hct (40.0-54.0) % MCV (78.0-102.0) fL MCH (27.0-31.0) pg MCHC (32-36) g/dL RDW (11.6-14.4) % Plt Count (150-420) K/mm3 MPV (8.7-11.0) fl Immature Gran % (Auto) (0.0-0.0) % Neut % (Auto) (50.0-70.0) % Lymph % (Auto) (18.0-42.0) % [place] % (Auto) (2.0-11.0) % Eos % (Auto) (1.0-6.0) % Baso % (Auto) (0.0-1.0) % Lymph # (Auto) (1.10-4.50) K/mm3 [place] # (Auto) (0.10-0.90) K/mm3 Eos # (Auto) (0.02-0.50) K/mm3 Baso # (Auto) (0.00-0.10) K/mm3 Abs Immat Gran (auto) (0.00-0.00) K/mm3 Absolute Neuts (auto) (1.70-7.20) K/mm3 Absolute Nucleated RBC (0.00-0.00) K/mm3 Nucleated RBC % (0-0.0) % PT (9.50-12.1) Seconds INR APTT (23.9-30.70) Sec D-Dimer (0.19-0.50) mg/L Sodium (137-145) mmol/L Potassium (3.4-5.0) mmol/L Chloride (98-107) mmol/L Carbon Dioxide (22-30) mmol/L Anion Gap (4-12) mmol/L BUN (9-20) mg/dL Creatinine (0.7-1.3) mg/dL Estim Creat Clear Calc ml/min Estimated GFR (59 - ) Glucose (65-110) mg/dL Calculated Osmolality (285-295) mOsm/kg Lactic Acid 1.3 (0.4-2.0) mmol/L Calcium (8.4-10.2) mg/dL Total Bilirubin (0.2-1.3) mg/dL AST (17-59) U/L ALT (6-50) U/L Alkaline Phosphatase (38-126) U/L Total Creatine Kinase (55-170) U/L Troponin I (0.000-0.034) ng/mL NT-Pro-B Natriuret Pep Total Protein (6.3-8.2) g/dL Albumin (3.5-5.1) g/dL Urine Color (Yellow) Urine Appearance (Clear) Urine pH (5.0-8.0) Ur Specific [place] (1.010-1.020) Urine Protein (Negative) Urine Glucose (UA) (Negative) Urine Ketones (Negative) Ur Blood (Man) (Negative) Urine Nitrate (Negative) Urine Bilirubin (Negative) Urine Urobilinogen (0.2-1.0) mg/dL Leukocyte Esterase Rfl (Negative) JILLIAN/UL Urine RBC (0-2) /hpf Urine WBC (0-3) /hpf Ur Squamous Epith Cells (Few) /hpf Calcium Oxalate Crystal (None) /hpf Urine Bacteria (None) /hpf Granular Casts (None) /lpf Urine Mucus /lpf ECG Data EKG #1: ECG completion date: 09/20/24 ECG completion time: 15:45 Interpretation: sinus tachycardia with a heart rate of 101. Normal axis. No ST elevation to suggest pericarditis/ MS Discharge Plan Discharge Clinical Impression: Atypical chest pain Acute renal failure Qualifiers: Acute renal failure type: unspecified Qualified Code(s): N17.9 - Acute kidney failure, unspecified Patient Disposition: Still a Patient Condition: Stable Additional Instructions: transfer patient to [facility] in [place]. Patient has been accepted by Dr. Mixon Patient Language: Amharic Prescriptions: No Action amoxicillin 500 mg tablet 1,000 mg PO Q8H Qty: 60 0RF ondansetron 4 mg tablet,disintegrating 4 mg PO Q8H PRN (Reason: nausea and vomiting) Qty: 14 0RF diphenoxylate-atropine [Lomotil] 2.5-0.025 mg tablet 1 tablet PO TID PRN (Reason: diarrhea) Qty: 7 0RF gabapentin 100 mg capsule 100 mg PO BID sertraline 50 mg tablet 50 mg PO DAILY hydroxyzine pamoate 25 mg capsule 25 mg PO TID PRN (Reason: Anxiety) aripiprazole 5 mg tablet 5 mg PO DAILY lisdexamfetamine [Vyvanse] 40 mg capsule 40 mg PO DAILY lisdexamfetamine [Vyvanse] 30 mg capsule 30 mg PO DAILY Qty: 30 0RF dicyclomine 10 mg capsule 20 mg PO BID PRN (Reason: abdominal pain) Qty: 20 0RF amoxicillin-pot clavulanate 875-125 mg tablet 1 tablet PO Q12H 7 Days Qty: 14 0RF Follow-up/Referrals: UNKNOWN,DOCTOR [Non-Staff] - Time of Disposition: 19:34
--- OUTSIDE RECORDS SUMMARY | 2024-09-20 15:46 | XMS_ITS | Patient Health Record ---
Author Organization [facility] Address [address] [place], [place] [id number] Care Team Providers Care It Support Consultant Name Role Phone TERRY TALBOT Unavailable [phone] Reason For Referral No Information Plan Of Treatment No Information Insurance Providers Payer Name Payer Address Payer Phone Subscriber Number Group Number Insured Name Patient Relationship to Insured Coverage Start Date Coverage End Date [facility] [address] [address] [place] [id number] MIRNA THOMAS Self - patient is the insured
--- OUTSIDE RECORDS SUMMARY | 2024-09-20 15:46 | XMS_ITS | Clinical Summary ---
Author Organization [facility] Address [address] [place] [address] Care Team Providers Care Biological Sciences Professor Name Role Phone Philip Luna NP Primary Care Provi chuck Allergies Active Allergy Reactions Criticality Noted Date Comments Iodine Hives 03/10/2021 Medications buPROPion XL (WELLBUTRIN XL) 150 MG 24 hr tablet Take 1 tablet (150 mg total) by mouth every morning. 2 Active cloNIDine (CATAPRES) 0.2 MG tablet Take 1 tablet (0.2 mg total) by mouth 2 (two) times daily. 2 Active BINAXNOW COVID-19 AG HOME TEST Kit REFER TO TARIFF COMPILING CLERK INSTRUCTIONS INCLUDED IN PACKAGING 2 Active HYDROcodone-ac etaminophen (NORCO) 5-325 MG tablet Take 1 tablet by mouth every 8 (eight) hours as needed. 2 Active lidocaine viscous (XYLOCAINE) 2 % solution SWISH AND EXPECTORATE 5ML EVERY 1-2 HOURS NEEDED FOR PAIN 2 Active nicotine (NICODERM CQ) 21 MG/24HR APPLY 1 PATCH TRANSDERMALLY DAILY 2 Active traMADol (ULTRAM) 50 MG tablet Take 1 tablet (50 mg total) by mouth 2 (two) times daily as needed. 2 Active etodolac (LODINE) 400 MG tabletIndicati ons:Crushing injury of left hip with thigh, initial encounter Take 1 tablet (400 mg total) by mouth every 12 (twelve) hours. 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 Gender Identity Not on file Sexual Orientation Not on file Last Filed Vital Signs Vital Sign Reading Time Taken Comments Blood Pressure 127/85 06/04/2022 4:35 PM CDT Pulse 78 06/04/2022 4:35 PM CDT Temperature 36.9 C (98.4 F) 06/04/2022 4:35 PM CDT Respiratory Rate 18 06/04/2022 4:35 PM CDT Oxygen Saturation 97% 06/04/2022 4:35 PM CDT Inhaled Oxygen Concentration - - Weight 81.6 kg (180 lb) 05/29/2024 1:00 PM CDT Height 170.2 cm (5' 7) 06/04/2022 4:35 PM CDT Body Mass Index 28.19 06/04/2022 4:35 PM CDT Plan of Treatment Health Maintenance Due Date Last Done Comments Hepatitis B Vaccines (3 of 3 - 3-dose series) 01/03/1993 1992, 1992 Annual Physical 07/04/1995 Hepatitis C 2010 DTaP, Tdap and Td Vaccines (6 - Td or Tdap) 02/16/2017 02/16/2007, 08/29/1997, 11/05/1993, Additional history exists HPV Vaccines (1 - 3-dose SCDM series) 07/04/2019 COVID-19 Vaccine ( season) 2023 Meningococcal Vaccine Completed 05/04/2010, 008 Meningococcal B Vaccine Aged Out No l onger eligible based on patient's age to complete this topic Pneumococcal Vaccine: Pediatrics (0 to 5 Years) and At-Risk Patients (6 to 49 Years) Aged Out No longer eligible based on patient's age to complete this topic RSV Immunizations Under 20 Months Aged Out No longer eligible based on patient's age to complete this topic Insurance [employer] Care Teams Biological Sciences Professor Relationship Specialty Start Date End Date Philip Luna NP [address] [place] [phone] PCP - General Nurse Practitioner Family 05/29/24
[2024-09-20] MEDS: ONDANSETRON INJ 4 MG/2 ML VIAL IV PUSH (15:49)
[2024-09-20] MEDS: HYDROmorphone HCL INJ (*CRX) 2 MG/ML VIAL 0.5 MG IV PUSH (15:49)
[2024-09-20] MEDS: LACTATED RINGERS 1,000 ML 999 ML IV CONT (15:50)
[2024-09-20 16:02] LABS: Hematocrit 45.4 % (40.0-54.0); Hemoglobin 16.0 g/dL (14.0-18.0); Immature Granulocyte Percent A 0.4 % (0.0-0.0); Lymphocytes Absolute Auto 3.34 K/mm3 (1.10-4.50); Mean Corpuscular HGB Conc 35.2 g/dL (32-36); Mean Corpuscular Hemoglobin 29.4 pg (27.0-31.0); Mean Corpuscular Volume 83.3 fL (78.0-102.0); Nucleated Red Blood Cells Absolute Auto 0.00 K/mm3 (0.00-0.00); Nucleated Red Blood Cells Perc 0.0 % (0-0.0); Platelet Count Result 477 K/mm3 (150-420); Red Blood Count 5.45 M/mm3 (4.70-6.10); White Blood Count 10.6 K/mm3 (4.8-10.8)
[2024-09-20 16:14] LABS: Alanine Aminotransferase 41 U/L (6-50); Albumin Level 5.7 g/dL (3.5-5.1); Alkaline Phosphatase 115 U/L (38-126); Anion Gap 20 mmol/L (4-12); Aspartate Amino Transferase 45 U/L (17-59); Bilirubin,Total 0.8 mg/dL (0.2-1.3); Blood Urea Nitrogen 19 mg/dL (9-20); Calcium 12.0 mg/dL (8.4-10.2); Carbon Dioxide 21 mmol/L (22-30); Chloride 98 mmol/L (98-107); Estimated CRCL calculation 31 ml/min; Estimated Glomerular Filt Rate 24; Glucose 152 mg/dL (65-110); Osmolality Calculated 293 mOsm/kg (285-295); Potassium 3.6 mmol/L (3.4-5.0); Sodium 139 mmol/L (137-145); Total Protein 9.8 g/dL (6.3-8.2)
[2024-09-20 16:25] LABS: Troponin I < 0.012 ng/mL (0.000-0.034)
[2024-09-20 16:26] LABS: INR 1.0; Partial Thromboplastin Time 25.1 Sec (23.9-30.70); Prothrombin Time 10.9 Seconds (9.50-12.1)
--- OUTSIDE RECORDS SUMMARY | 2024-09-20 16:28 | XMS_ITS | Clinical Summary ---
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
[2024-09-20 17:04] LABS: Creatine Kinase 192 U/L (55-170)
[2024-09-20 17:04] LABS: Add Urine Microscopic? YES; Appearance Urine Clear (Clear); Glucose Urine UA Negative (Negative); Leukocyte Esterase Ur Negative LEU/UL (Negative); Nitrate Urine Negative (Negative); Specific Grav Ur >= 1.030 (1.010-1.020)
[2024-09-20] MEDS: SODIUM CHLORIDE 0.9% IV 1,000 ML 999 ML IV CONT (17:05)
[2024-09-20 18:38] LABS: Anion Gap 10 mmol/L (4-12); Blood Urea Nitrogen 20 mg/dL (9-20); Calcium 9.8 mg/dL (8.4-10.2); Carbon Dioxide 28 mmol/L (22-30); Chloride 100 mmol/L (98-107); Estimated CRCL calculation 46 ml/min; Estimated Glomerular Filt Rate 38; Glucose 101 mg/dL (65-110); Osmolality Calculated 288 mOsm/kg (285-295); Potassium 3.5 mmol/L (3.4-5.0); Sodium 138 mmol/L (137-145)
--- NOTE | 2024-09-20 18:59 | PC.NURSE ---
report to tasha barraza
[2024-09-20] MEDS: LACTATED RINGERS 1,000 ML 100 ML IV CONT (20:19)
[2024-09-21 07:25] LABS: NT Pro B Type Natriuretic Pept 37 pg/mL (19.9-100)
== END 2024-09-20 20:25 | disposition short-term general hospital (02) ==
PROVIDERS: Emergency Provider Internal Medicine Critical Care Medicine; PCP Registered Nurse
DX: R07.89 Other chest pain (principal); N17.9 Acute kidney failure, unspecified; Z87.891 Personal history of nicotine dependence
CPT/HCPCS: 36415; 71045; 80048; 80053; 81001; 82550; 83605; 83880; 84484; 85025; 85380; 85610; 85730; 93005; 96361; 96374; 96375; 99285; J1171; J2405; J7030; J7120